=== PATIENT | male | born 1985 ===

== ENCOUNTER 2025-06-12 20:09 | Inpatient (IN) ==
[2025-06-12 21:05] LABS: Hematocrit (blood only) 44.2 % (42.0-52.0); Hemoglobin 15.4 g/dl (14.0-18.0); Mean Corpuscular Hemoglobin 31.2 pg (25.0-34.0); Mean Corpuscular Volume 89.5 fL (80.0-100.0); Platelet Count 336 K/uL (130-400); RDW Standard Deviation 43.1 fL (36.4-46.3); Red Blood Count 4.94 M/uL (4.70-6.10); White Blood Count 11.26 K/ul (4.8-10.8)
[2025-06-12 21:17] LABS: Appearance Urine Clear (Clear); Bacteria Urine Automated None Seen (None Seen); Cast Urine Automated 0-2 /lpf (0-2); Epithelial Cell Urine Auto 0-2 /hpf (0-2); Glucose Urine UA Negative (Negative); WBC Urine Automated 0-5 /hpf (0-5)
[2025-06-12 21:27] LABS: Alanine Aminotransferase 31.0 U/L (7-52); Albumin Globulin Ratio 1.2 (0.9-2); Alkaline Phosphatase 65.0 U/L (34-104); Anion Gap 7.0 (3-11); Bilirubin,Total 0.7 mg/dl (0.2-1.0); Blood Urea Nitrogen 15.0 mg/dl (6-23); Calcium 9.7 mg/dl (8.6-10.3); Carbon Dioxide 29.0 mmol/L (21-32); Chloride 101.0 mmol/L (98-107); Creatine Kinase 218.0 U/L (30-223); Creatinine Clr Calc Pharmacy 130.3 ml/min; Globulin 3.8 gm/dl (2.5-4.0); Glucose 123.0 mg/dl (70-99(Fasting)); Lithium 0.3 mmol/L (0.6-1.2); Potassium 3.7 mmol/L (3.5-5.1); Sodium 137.0 mmol/L (136-145); Total Protein 8.4 gm/dl (6.0-8.3)
[2025-06-12 21:35] LABS: Thyroid Stimulating Hormone 0.918 uIu/ml (0.300-4.500)
[2025-06-12 21:38] LABS: Acetaminophen < 3 ug/ml (10-30); Salicylate < 3.0 mg/dl (3.0-30)
[2025-06-12 21:45] LABS: Amphetamines+Metham, Urine Neg (Neg); MDMA (Ecstacy), Urine Neg (Neg); Marijuana, Urine Neg (Neg)
[2025-06-12 22:51] LABS: ALC (manual) 6.31 K/uL (1.2-3.4); ANC (manual) 3.83 K/uL (1.4-6.5); RBC Morphology Unremarkable; Reactive Lymphocytes # (manual) 3.27 K/uL; Reactive Lymphocytes % (manual) 29 %
--- NOTE | 2025-06-12 23:24 | Emergency Department Note ---
History of Present Illness General Chief complaint: Mental Health Evaluation Stated complaint: STRESS, MANIC EPISODE, LACK OF SLEEP Time Seen by Provider: 06/12/25 20:17 Source: patient and family (Mother) History of Present Illness Provider complaint: Mental health evaluation 39-year-old male presents to the emergency department stating "I am the Matilda was sent to be the messenger of Darwin". Mother reports that the patient has a history of bipolar disorder and has not been sleeping for the last 4 days. No drugs or alcohol. Patient reports no suicidal or homicidal ideation. Past Med/Surg History Problem List (Updated 06/13/25 @ 00:24 by Jonathan Infante MD) Bipolar disorder (Acute) Medical History Bipolar disorder Social History Smoking Status: Never smoker Preferred Language: British Feels Safe at Home: Yes Gender Identity: Male Physical Exam Vital Signs Vital Signs - 24 hr 06/12/25 20:09 06/12/25 20:11 06/12/25 22:27 Temperature 37 C Temperature Source Temporal Artery Scan Pulse Rate 68 Pulse Rate [Finger] 76 Pulse Rhythm Regular Pulse Strength Normal Respiratory Rate 17 16 Respiratory Effort / Characteristics Non-Labored Non-Labored Spontaneous Respiratory Depth Normal Normal Respiratory Pattern Regular Blood Pressure 195/110 H Blood Pressure [Right Arm] 136/89 Blood Pressure Mean 138 Blood Pressure Mean [Right Arm] 104 Blood Pressure Position Sitting Pulse Oximetry 97 94 Oxygen Delivery Method Room Air Room Air Sepsis Recent Fever Within 48 Hours No Sepsis New/Unexplained Change in Mental Status N/A Sepsis Action Taken by Nursing No Action Required Physical Exam GENERAL: oriented to person, place, and time. appears well-developed and well- nourished. HENT: Exam performed. - Head: Normocephalic and atraumatic. EYES: Conjunctivae and EOM are normal. Right eye exhibits no discharge. Left eye exhibits no discharge. No scleral icterus. NECK: Normal range of motion. Neck supple. No JVD present. CV: Normal rate, regular rhythm, normal heart sounds and intact distal pulses. There is no peripheral edema. Palpable radial pulses bue. PULM/CHEST: Effort normal and breath sounds normal. No respiratory distress. No stridor. no wheezes. no rales. ABD: The abdomen is soft. There is no tenderness. NEURO: Motor and sensation grossly intact. SKIN: Skin is warm and dry. He is not diaphoretic. PSYCH: Bizarre affect. No suicidal ideation. Course Course 2017: The patient was evaluated in room A6. A complete history and physical exam was performed 2324: Patient medically cleared. Awaiting psychiatric evaluation and placement patient placed in observation at this time 0022: Case signed out to Dr. Masterson pending placement. Administered Medications Discontinued Medications Lorazepam (Lorazepam 2 Mg/1 Ml Vial) 1 mg IV NOW STA Stop: 06/12/25 22:17 Last Admin: 06/12/25 22:23 Dose: 1 mg Documented By: NRSidney Medical Decision Making Laboratory Data Attestation: I reviewed the patient's lab results. 06/12/25 20:44 06/12/25 20:44 Lab Results 06/12/25 06/12/25 06/12/25 Range/Units 20:44 20:55 Unknown WBC 11.26 H (4.8-10.8) K/ul RBC 4.94 (4.70-6.10) M/uL Hgb 15.4 (14.0-18.0) g/dl Hct 44.2 (42.0-52.0) % MCV 89.5 (80.0-100.0) fL MCH 31.2 (25.0-34.0) pg MCHC 34.8 (32.0-36.0) g/dL RDW Std Deviation 43.1 (36.4-46.3) fL RDW Coeff of Carlene 13.2 (11.5-14.5) % Plt Count 336 (130-400) K/uL MPV 9.4 (9.4-12.4) fL Neutrophils % (Manual) 34 % Lymphocytes % (Manual) 27 % Reactive Lymphs % (Man) 29 % Monocytes % (Manual) 8 % Eosinophils % (Manual) 1 % Basophils % (Manual) 1 % Neutrophils # (Manual) 3.83 (1.40-6.50) K/uL Total Absolute Neuts 3.83 (1.4-6.5) K/uL Lymphocytes # (Manual) 3.04 (1.2-3.4) K/uL Reactive Lymphs # 3.27 K/uL Total Abs Lymphocytes 6.31 H (1.2-3.4) K/uL Monocytes # (Manual) 0.90 H (0.11-0.59) K/uL Eosinophils # (Manual) 0.11 (0-0.50) K/uL Basophils # (Manual) 0.11 (0-0.2) K/uL RBC Morphology Unremarkable Sodium 137 (136-145) mmol/L Potassium 3.7 (3.5-5.1) mmol/L Chloride 101 (98-107) mmol/L Carbon Dioxide 29 (21-32) mmol/L Anion Gap 7 (3-11) BUN 15 (6-23) mg/dl Creatinine 0.96 (0.6-1.4) mg/dl Est Cr Clr Drug Dosing 130.3 ml/min eGFR 103.11 BUN/Creatinine Ratio 15.6 (10-20) Glucose 123 H (70-99(Fasting)) mg/dl Calcium 9.7 (8.6-10.3) mg/dl Total Bilirubin 0.7 (0.2-1.0) mg/dl AST 31 (13-39) U/L ALT 31 (7-52) U/L Alkaline Phosphatase 65 (34-104) U/L Total Creatine Kinase 218 (30-223) U/L Total Protein 8.4 H (6.0-8.3) gm/dl Albumin 4.6 (3.4-5.0) gm/dl Globulin 3.8 (2.5-4.0) gm/dl Albumin/Globulin Ratio 1.2 (0.9-2) TSH 0.918 (0.300-4.500) uIu/ml Urine Color Dark Yellow Urine Appearance Clear (Clear) Urine pH 6.0 (4.5-7.5) Ur Specific [place] 1.014 (1.000-1.030) Urine Protein Negative (Negative) Urine Glucose (UA) Negative (Negative) Urine Ketones Negative (Negative) Urine Blood 1+ H (Negative) Urine Nitrite Negative (Negative) Urine Bilirubin Negative (Negative) Urine Urobilinogen Negative (Negative) Ur Leukocyte Esterase Negative (Negative) Urine WBC (Auto) 0-5 (0-5) /hpf Urine RBC (Auto) 6-10 H (0-2) /hpf U Hyaline Cast (Auto) 0-2 (0-2) /lpf U Epithel Cells (Auto) 0-2 (0-2) /hpf Urine Bacteria (Auto) None Seen (None Seen) Urine Comment Salicylates < 3.0 L (3.0-30) mg/dl Urine Opiates Screen Neg (Neg) Ur Methadone, Qual Neg (Neg) Urine Fentanyl Screen Neg (Neg) Acetaminophen < 3 L (10-30) ug/ml Urine Barbiturates Neg (Neg) Ur Phencyclidine (PCP) Neg (Neg) U Amphetamin/Meth Scrn Neg (Neg) MDMA (Ecstasy) Screen Neg (Neg) U Benzodiazepines Scrn Neg (Neg) [place] 0.3 L (0.6-1.2) mmol/L Ur Cocaine Metabolite Neg (Neg) U Marijuana (THC) Screen Neg (Neg) Ethyl Alcohol mg/dL < 10.0 (<10.0) mg/dl SARS-CoV-2, RNA, NAAT NEGATIVE (NEGATIVE) ECG Data Attestation: I personally reviewed and interpreted this ECG as follows: Rate (beats per minute): 67 Rhythm: + normal sinus ECG ST segments: + Normal ST segments Additional Comments: MS 1.2 QRS 104 QTc 435 no delta waves MDM Narrative 2017: The patient was evaluated in room A6. A complete history and physical exam was performed 2324: Patient medically cleared. Awaiting psychiatric evaluation and placement patient placed in observation at this time 0022: Case signed out to Dr. Masterson pending placement. Observation note Indication: Psych eval/placement Patient, with bipolar disorder was first seen at 2017 hrs and the observation time began at 2324 hrs and was necessary in order to have psych evaluation completed and the patient be admitted for inpatient psychiatric treatment Impression & Plan Bipolar disorder Discharge Plan Visit Data Chief Complaint: Mental Health Evaluation Stated Complaint: STRESS, MANIC EPISODE, LACK OF SLEEP ED Provider: Hardy Masterson Discharge Problem: Bipolar disorder Patient Disposition: Still a Patient Condition: Fair Forms Stand Alone Forms: My [facility], Suicide Prevention Resources Referrals Referrals: PCP,NO [Primary Care Provider] -
--- NOTE | 2025-06-13 00:20 | Emergency Department Note ---
ED Visit Note I received signout from Dr. Infante. Patient has not slept in 4 days history of bipolar disorder is having thoughts of grandeur stating that he has some profit sent by the [facility]. History of taking lithium in the past but has not been compliant. No home medications. Patient is pending placement. Per ED psych case management review of the liaison Dr. Quiroz had recommended Zyprexa and Ativan. Zyprexa was ordered Ativan was ordered as needed. Patient accepted to [address] .
[2025-06-13] MEDS ORDERED: LORazepam 1 MG TAB PO PRN (00:27)
[2025-06-13] MEDS: OLANZapine 10 MG TAB PO STA (03:10)
--- NOTE | 2025-06-13 12:13 | Electrocardiogram Report ---
Test Reason : Blood Pressure : */* mmHG Vent. Rate : 67 BPM Atrial Rate : 67 BPM P-R Int : 112 ms QRS Dur : 104 ms QT Int : 412 ms P-R-T Axes : 7 18 38 degrees QTcB Int : 435 ms Normal sinus rhythm Normal ECG No previous ECGs available Confirmed by Casey Pink ([id number]) on 06/13/2025 12:12:45 PM Referred By: REFERRED SELF Confirmed By: Casey Pink
[2025-06-13] MEDS ORDERED: MAGNESIUM HYDROXIDE SUSP 30 ML UDC PO PRN (12:47)
[2025-06-13] MEDS ORDERED: ACETAMINOPHEN 325 MG TAB PO PRN (12:47)
[2025-06-13] MEDS ORDERED: SODIUM CHLORIDE 0.65% NA SOLN 45 ML (OCEAN) PRN (12:47)
[2025-06-13] MEDS ORDERED: ALUMINUM/MAGNESIUM SUSP 30 ML UDC PO PRN (12:47)
[2025-06-13] MEDS: LORazepam 1 MG TAB PO STA ×2 (13:24→14:58)
--- NOTE | 2025-06-13 14:58 | History & Physical ---
Date of Service June 13, 2025 Impression / Recommendations Impression LEONARDO HARDEN is a 39-year-old M has a history of bipolar disorder, and was admitted on 06/13/25 12:08 on a 302 involuntary commitment for becky, psychosis. Concern for Bipolar 1 Becky with psychosis. Presents pressured speech, decreased need for sleep, high energy, elevated mood and erotomanic and temple delusions about being in a love with a female and trying to help her and being a messenger of god. Intrusive with peers going into their room and following females on the unit inappropriately. Presents poor insight and judgement. Recent triggers include a woman messaging him on facebook for love and recent decrease of lithium from 1200mg to 900mg daily total 2-3 weeks by outpatient psychiarist. Distant past becky suspected with more recent depressive episodes. Appears patient has been partially adherent to meds given subtherapeutic lithium level (0.3). Labs reviewed: reactive leukocytosis; CMP, UA, UDS, TSH unremarkable. Overall, I spent a total of 80 minutes with this case including review of chart records, nursing report, review of lab work, direct evaluation of the patient at bedside, counseling the patient, multidisciplinary team meeting, orders, and documentation in the electronic health record. (1) Becky: (2) Insomnia: (3) Delusions: (4) Unspecified psychosis not due to a substance or known physiological condition: (5) Bipolar 1 disorder: (6) HTN (hypertension): Plan 06/13/25: The patient was admitted to the [facility] ([facility] mental health unit) on q15 min checks (behavioral with suicide precautions) for safety. The patient will participate in group, recreational, and milieu therapies and will be offered additional individual and family sessions as clinically appropriate. -Olanzapine 10mg HS -Lorazepam 2mg HS Inventory Assets Strengths: financial stability, family support Needs: insight into condition, medication management Suicide Risk Level Suicide Risk Level: Moderate (q15 min suicide checks) Risk Factors Assessment Male: Yes : No Health Problems: No Mental Health Diagnoses: Yes Substance Use Disorders: No Previous Attempt: No Family History of Suicide: No Previous Psychiatric Hospitalization: Yes Hopelessness: No Protective Factors Assessment Orthodoxy Beliefs: Yes : No Responsible for Young Children: No Employed: No Stable Relationships: Yes Supportive Family: Yes Good Rapport with Provider: Yes Absence of Any Risk Factors Above: No Psychiatric History Identifying Data LEONARDO HARDEN is a 39-year-old M has a history of bipolar disorder, and was admitted on 06/13/25 12:08 on a 302 involuntary commitment for becky, psychosis. Chief Complaint "In love and had to help someone" History of Present Illness Patient reports being in love and having to help somebody in her first to a woman he has been texting and connecting with. Feels confused and is unsure why he is in the hospital. Says he has been involved with the girl and has lost sleep over her. Reports feeling more emotional and loving everyone. Met this girl on a dating website and driving from [place] to see her. Patient is originally from [facility]. Unsure where she lives. Getting signs to help her because her daughter needs help. Reports past autism and ADHD diagnosis. Reports taking medications: Holly 300 mg 3 times daily, propranolol 80 mg daily, Latuda 20 mg with dinner, Lexapro 10 mg daily. Has a psychiatrist. Past inpatient psychiatric hospitalization 2 years ago for depression and anxiety. Reports past becky many years ago when his daughter was a and he had started steroids and had stress from school. Reports in the past few weeks lithium was decreased from 1200 to 900 mg daily total. Patient does not want antipsychotic however is willing to accept a benzodiazepine. Denies current SI and HI. Patient reassured. 06/13/25 13:40 - Psychiatric Liason Note by Angela Chawla RN Pt admitted to [address] [place] [address] at 1205 on 302 involuntary commitment. Pt presented after he drove here from [place] trying to find a female online because "the [facility] told me to." He has been calm and cooperative since he has arrived on the unit. He remains delusional as he still states he is hearing "inner dialogue telling him to help someone." He also questioned staff who a female peer is on the unit believing this may be the female he is supposed to help. He is refusing to sign NAKITA's for any of his outpatient providers. He initially was resistant to sign an NAKITA for his parents but he did eventually agree. He stated he sees Shae Marina through [facility] in [facility] for psych med management. He also sees Saumya through same facility for therapy. He also claims she has another therapist there as well through the [facility]" but was not able to elaborate what this is. He denies substance us. His last psych hospitalization was approximately 2 years ago in [place] but he states he has been hospitalized at least 15-20 times. He lacks insight into hospitalization as he feels he does not need to be here and he is only here to help someone else. He made homicidal statements in ED but none voiced on the unit. He showered upon arrival. Initiated on suicide/homicide precautions as well as elopement and MNPR. 06/13/25 03:10 - Nurse Note by Yury Hernandez RN Patient started to become increasingly irritable and restless throughout the night, continuously coming out of room and becoming increasingly more difficult to redirect. Pt came out of U room multiple times and made numerous statements about a female staff member, including "that's her, I need to talk to her" and "It's a sign, I know what i need to do". Pt was instructed to return into his room, but instead attempted to follow the female staff out of the unit. Security then presented to [facility] and redirected patient back to room. Pt again came out of room and stated "I was told to murder all of you without touching you, and I just have to do what I'm told" with this RN, Willy GODINEZ and security staff members Guanakito Beard and Leo present. Patient was again redirected into room and an order was placed for 10mg PO Zyprexa and 1mg PO Ativan. This RN attempted to administer medications to pt, but refused them. An order was then placed for 2mg of IV Ativan by Dr. Masterson. Security present in room while this RN then attempted to administer the IV medication, and patient escalated and attempted to fight with staff. Pt physically held by security and taken to the ground, where the IV Ativan was administered. Dr. Masterson and charge nurse made aware of incident. After administration, patient de-escalated and was able to be redirected back to bed. Pt denied any pain or injury from the incident, and full body assessment was done by this RN and no external injuries noted. Pt did not strike head while being taken to the ground. 06/12/25 21:55 - Case Management ED Psych by Tori Petty Met with Leonardo javier to complete mental health evaluation. Patient denies any mental health conditions. When asked about psychiatric medications he is prescribed, he stated "lithium is for a little bit of anxiety and Lexapro is for the same." Patient then stated he is diagnosed with Autism and ADHD. Leonardo stated he travelled to [place] to see a person he was talking to online, Fatmata Marvin. He stated he knows Fatmata's address and she is "elusive in a way about me coming." He stated he "is following the directions of the [employer] [facility] to come find her." Patient repeatedly out of the room stating he needs to find Fatmata. He then stated he is hearing voices to help the patient (minor female) in the next room. He stated he has had this happen to him before "but not like this, I know this is real and I have to follow his orders." He denies SI/HI/SIB. He stated "I just feel love." Patient denies visual hallucination but stated "I am noticing more and more in tune to see the messages." He reports hearing the voice of the [employer] telling him to do things. He denies that voices are telling him to harm himself or others. Leonardo stated he is prescribed medication by a psychiatrist but does not remember name/agency in [place]. He stated he also sees a therapist but can't remember name. He stated he has been inpatient in [place], [place]. He talked about feeling "positive/negative energy." He denies legal issues. He did not want to talk about trauma or abuse history. He stated parents followed him from [place] "to stop me from doing it." Leonardo stated he will sign himself into mental health treatment "because the [employer] led me here for a reason so it must be my purpose." Leonardo is not able to meaningfully consent to inpatient treatment at this time due to delusion based thinking that is not reality based in his thinking. 302 petition completed and delegate contacted. 06/12/25 20:54 - Nurse Note by Jil Renteria RN Patient repeatedly asking staff if they know a "Fatmata Marvin." States that he came to [place] looking for her. Out of room frequently with various requests--RN provided blanket, water, crackers and peanut butter. Patient restless but overall cooperative, generally redirectable. 06/12/25 20:24 - Case Management ED Psych by Tori Petty Accompanied Dr. Infante to meet with Leonardo and his mother. Leonardo stated "Im just the messenger for the tony." Mother stated "he is Bipolar and hasn't slept in four days." Leonardo stated "no I'm not. Mom, you need to stop." Patient stated he does see a psychiatrist and is prescribed medications. Leonardo presents extremely guarded. Spoke with mother outside room. Mother stated "he's very mentally ill." Mother stated he is hearing voices. Mother denies any SI. Mother denies any aggression or HI. Process of medical clearance and mental health evaluation explained to mother and patient. Past Psychiatric History Current Psychiatric Diagnosis: Autism/ADHD History of Previous Suicide Attempt: No Allergies Allergy/AdvReac Type Severity Reaction Status Date / Time No Known Allergies Allergy Unverified 06/13/25 14:34 Home Medications Medication Instructions Recorded Confirmed Type Latuda 20 mg PO QPM 06/13/25 06/13/25 History escitalopram oxalate 10 mg tablet 10 mg PO DAILY 06/13/25 06/13/25 History (Lexapro) hydroxyzine pamoate 25 mg capsule 25 mg PO QPM 06/13/25 06/13/25 History (Vistaril) lithium carbonate 300 mg tablet 300 mg PO TID 06/13/25 06/13/25 History propranolol 80 mg capsule,24 80 mg PO DAILY 06/13/25 06/13/25 History hr,extended release Family History Family History of: Doesn't Know Alcohol History Hx of Alcohol Use Over the Past 12 Months: Yes (occassional) AUDIT Total Score: 3 Smoking Use Have You Smoked or Used Tobacco Products in the Last 30 Days: No Smoking Status: Never smoker Substance History Hx of Prescription Med Misuse Over the Past 12 Months: No Hx of Over the Counter Med Misuse Over the Past 12 Months: No Hx of Inhalent Misuse Over the Past 12 Months: No Hx of Organic Substance Use Over the Past 12 Months: No Hx of Illegal Substances/Street Drug Use Over Past 12 Months: No Problems as a Result of Past Substance Use: None Identified Personal History Living Arrangements: Home Living Arrangements Comments: lives in a home owned by parents Highest Grade Completed: Graduate School Beliefs That Will Affect Care: None Patient History Medical History Bipolar disorder Social History Smoking Status: Never smoker Preferred Language: Syrian Communication Ability: Effective Boat Outfitter Required: No Beliefs That Will Affect Care: None Feels Safe at Home: Yes Gender Identity: Male Assistive Devices: Glasses Physical Exam Mental Examination: Appearance: Well Groomed Eye Contact: Direct Eye Contact Motor Behavior: Unremarkable Speech: Normal Mood: Anxious and E levated Affect: Congruent Thought Process: Disorganized and Goal Oriented Thought Content: Disorganized and Obsessional Thoughts Hallucinations: None (unclear) Insight: Poor Judgement: Poor Vital Signs (Past 24 Hours): Last Vital Signs Temp 36.6 C 06/13/25 13:02 Pulse 78 06/13/25 13:02 Resp 16 06/13/25 13:02 BP 118/84 06/13/25 06:35 Pulse Ox 100 06/13/25 13:02 O2 Del Method Room Air 06/13/25 13:02 Exam Statement: A physical exam was performed in the ED for the purposes of medical clearance. I accept that physical as correct and adequate for the purposes of the inpatient physical exam. Results & Data ([facility]) Laboratory Results Laboratory Results - last 24 hr 06/12/25 06/12/25 06/12/25 20:44 20:55 Unknown WBC 11.26 H RBC 4.94 Hgb 15.4 Hct 44.2 MCV 89.5 MCH 31.2 MCHC 34.8 RDW Std Deviation 43.1 RDW Coeff of Carlene 13.2 Plt Count 336 MPV 9.4 Neutrophils % (Manual) 34 Lymphocytes % (Manual) 27 Reactive Lymphs % (Man) 29 Monocytes % (Manual) 8 Eosinophils % (Manual) 1 Basophils % (Manual) 1 Neutrophils # (Manual) 3.83 Total Absolute Neuts 3.83 Lymphocytes # (Manual) 3.04 Reactive Lymphs # 3.27 Total Abs Lymphocytes 6.31 H Monocytes # (Manual) 0.90 H Eosinophils # (Manual) 0.11 Basophils # (Manual) 0.11 RBC Morphology Unremarkable Sodium 137 Potassium 3.7 Chloride 101 Carbon Dioxide 29 Anion Gap 7 BUN 15 Creatinine 0.96 Est Cr Clr Drug Dosing 130.3 eGFR 103.11 BUN/Creatinine Ratio 15.6 Glucose 123 H Calcium 9.7 Total Bilirubin 0.7 AST 31 ALT 31 Alkaline Phosphatase 65 Total Creatine Kinase 218 Total Protein 8.4 H Albumin 4.6 Globulin 3.8 Albumin/Globulin Ratio 1.2 TSH 0.918 Urine Color Dark Yellow Urine Appearance Clear Urine pH 6.0 Ur Specific [place] 1.014 Urine Protein Negative Urine Glucose (UA) Negative Urine Ketones Negative Urine Blood 1+ H Urine Nitrite Negative Urine Bilirubin Negative Urine Urobilinogen Negative Ur Leukocyte Esterase Negative Urine WBC (Auto) 0-5 Urine RBC (Auto) 6-10 H U Hyaline Cast (Auto) 0-2 U Epithel Cells (Auto) 0-2 Urine Bacteria (Auto) None Seen Urine Comment Salicylates < 3.0 L Urine Opiates Screen Neg Ur Methadone, Qual Neg Urine Fentanyl Screen Neg Acetaminophen < 3 L Urine Barbiturates Neg Ur Phencyclidine (PCP) Neg U Amphetamin/Meth Scrn Neg MDMA (Ecstasy) Screen Neg U Benzodiazepines Scrn Neg [place] 0.3 L Ur Cocaine Metabolite Neg U Marijuana (THC) Screen Neg Ethyl Alcohol mg/dL < 10.0 SARS-CoV-2, RNA, NAAT NEGATIVE Current Inpatient Medications Current Inpatient Medications: Current Inpatient Medications Acetaminophen (Acetaminophen 325 Mg Tab) 650 mg PO Q4H PRN PRN Reason: Headache or Minor Fever Stop: 07/13/25 12:46 Al Hydrox/Mg Hydrox/Simethicone (Aluminum/Magnesium Susp 30 Ml Udc) 30 ml PO Q4H PRN PRN Reason: GI Upset Stop: 07/13/25 12:46 Bismuth Subsalicylate (Bismuth Subsalicylate 262 Mg Chew) 2 tab PO Q30M PRN PRN Reason: Loose Stool/Diarrhea Stop: 07/13/25 12:46 Haloperidol Lactate (Haloperidol Lactate 5 Mg/Ml 1 Ml Vial) 5 mg IM Q8 PRN PRN Reason: Agitation Stop: 07/13/25 12:53 Hydroxyzine HCl (Hydroxyzine Hcl 25 Mg Tab) 50 mg PO HSZ PRN PRN Reason: Insomnia Stop: 07/13/25 12:46 Hydroxyzine HCl (Hydroxyzine Hcl 25 Mg Tab) 25 mg PO Q4H PRN PRN Reason: Anxiety Stop: 07/13/25 12:46 Lorazepam (Lorazepam 1 Mg Tab) 2 mg PO HS TOM Stop: 07/13/25 21:59 Lorazepam (Lorazepam 2 Mg/1 Ml Vial) 2 mg IM Q8 PRN PRN Reason: Agitation Stop: 07/13/25 12:51 Lorazepam (Lorazepam 1 Mg Tab) 2 mg PO Q8 PRN PRN Reason: Agitation Stop: 07/13/25 14:36 Magnesium Hydroxide (Magnesium Hydroxide Susp 30 Ml Udc) 30 ml PO DAILY PRN PRN Reason: Constipation Stop: 07/13/25 12:46 Olanzapine (Olanzapine 10 Mg Tab) 10 mg PO HS TOM Stop: 07/13/25 21:59 Olanzapine (Olanzapine 5 Mg Tablet) 5 mg PO Q6 PRN PRN Reason: psychosis/agitation Stop: 07/13/25 14:25 Sodium Chloride (Sodium Chloride 0.65% Na Soln 45 Ml ([place])) 1 - 2 sprays NA PRN PRN PRN Reason: Nasal Dryness/Congestion Stop: 07/13/25 12:46
[2025-06-13] MEDS: LORazepam 1 MG TAB PO SCH (22:23)
[2025-06-13] MEDS: OLANZapine 10 MG TAB PO SCH (22:23)
[2025-06-14] MEDS: LORazepam 1 MG TAB PO PRN (08:24)
[2025-06-14] MEDS: PROPRANOLOL HCL LA 80 MG CAPCR PO SCH (10:48)
--- NOTE | 2025-06-14 11:59 | Psychiatric Progress Note ---
Date of Service June 14, 2025 Impression / Recommendations Impression LYN HARDEN is a 39-year-old M has a history of bipolar disorder, and was admitted on 06/13/25 12:08 on a 302 involuntary commitment for becky, psychosis. Concern for Bipolar 1 Becky with psychosis. Presents pressured speech, decreased need for sleep, high energy, elevated mood and erotomanic and zoroastrian delusions about being in a love with a female and trying to help her and being a messenger of god. Intrusive with peers going into their room and following females on the unit inappropriately. Presents poor insight and judgement. Recent triggers include a woman messaging him on facebook for love and recent decrease of lithium from 1200mg to 900mg daily total 2-3 weeks by outpatient psychiatrist. Distant past becky suspected with more recent depressive episodes. Appears patient has been partially adherent to meds given subtherapeutic lithium level (0.3). A: Continues to present delusional thoughts, pressured speech, elevated mood state, decreased need for sleep and poor insight/judgement into condition. Has been intrusiveness going into his peers' rooms and following female staff members on the unit and believe it is related to delusional thought content. Received minimal and disrupted sleep despite sleep aid. Concern for safety if discharged in current state. Refused nightly olanzapine and took other medications with encouragement. Collateral gathered from family and confirms prior concerns; family is supportive and concerned about his mental state and safety. Recent stressors of divorce and medication change may have been becky triggers. Plan to optimize benzodiazepines, restart lithium. Current plan to pursue further involuntary commitment. MNPR due to becky, psychosis, intrusiveness with peers and staff Overall, I spent a total of 60 minutes with this case including review of chart records, nursing report, review of lab work, direct evaluation of the patient at bedside, counseling the patient, multidisciplinary team meeting, orders, gathering collateral and documentation in the electronic health record. (1) Becky: (2) Insomnia: (3) Delusions: (4) Unspecified psychosis not due to a substance or known physiological condition: (5) Bipolar 1 disorder: (6) HTN (hypertension): Plan 06/14/2025: Start [place] 600mg BID D/c Lorazepam Start Clonazepam 1mg QAM, 2mg HS Start Propranolol ER 80mg daily (home med) 06/13/25: The patient was admitted to the [facility] on q15 min checks (behavioral with suicide precautions) for safety. The patient will participate in group, recreational, and milieu therapies and will be offered additional individual and family sessions as clinically appropriate. -Olanzapine 10mg HS -Lorazepam 2mg HS Inventory Assets Strengths: financial stability, family support Needs: insight into condition, medication management Suicide Risk Level Suicide Risk Level: Moderate (q15 min suicide checks) Risk Factors Assessment Male: Yes : No Do You Have Access To A Gun?: No Health Problems: No Mental Health Diagnoses: Yes Substance Use Disorders: No Previous Attempt: No Family History of Suicide: No Previous Psychiatric Hospitalization: Yes Hopelessness: No Protective Factors Assessment Islam Beliefs: Yes : No Responsible for Young Children: No Employed: No Stable Relationships: Yes Supportive Family: Yes Good Rapport with Provider: Yes Absence of Any Risk Factors Above: No Interval History Identifying Information LYN HARDEN is a 39-year-old M has a history of bipolar disorder, and was admitted on 06/13/25 12:08 on a 302 involuntary commitment for becky, psychosis. Chief Complaint Becky, psychosis Review of Systems Sleep Information Total Hours of Sleep: 2.25 Sleep Comments: Ativan 2mg. poor sleep Meal Information Percent Meal Consumed - Breakfast: 100 Percent Meal Consumed - Lunch: 100 Percent Meal Consumed - Dinner: 100 Subjective Subjective Patient was seen & assessed and interval progress reviewed with treatment team nursing and social work The patient reports that anxiety is good and helps to give love. During the interview, he closes his eyes and becomes tangential at times. Pressured and excessive speech and required some redirection. Rates his energy as "pretty good". Reports normally getting 4 to 5 hours of sleep and he was told he only received 2.5 hours of disrupted sleep with medication assistance. Says that he is "seeing signs". Says that his ex-'s father popped up on Facebook and felt he needed to talk to his ex-. Ex- has been reluctant to talk to him. Then a random girl on Facebook started "love bombing him". She is in [place] and felt that he had to go to see her. [place] that she was in trouble and that the "[employer]" told him to come. Reports wanting to be in high anxiety state as he brings more love. Does not believe in the pharmaceutical industry feel they are exploiting the nation. When asked why he is pursuing the girl that he met on Facebook he reports that it is a different girl and the girl he met on Facebook and that he is "feeling so much in love" And she was giving mixed signals. says he is a "messenger from God here to spread love for music". 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 We discussed past medications and side effects. He reports both Seroquel and Zyprexa was overly sedated if and gave a "poverty of thought", risperidone made him feel "numb", ziprasidone and Abilify caused "akathisia". Denies taking clozapine. Throughout the day required reassurance regarding his medications. Spoke to patient's mother (MARGARET HARDEN [phone]): Recent triggers include getting a divorce and not handling it well. Came all the way to [place] to see a girl he met online. More severe becky than the past. Past manic episode was when daughter was . Not sure how long it has been since he has slept. Drove all the way from [place], [place]. He cares very much about daughter and his dogs. Family confirms patient has been more paranoid. Does not want to listen to parents. Physical Exam Mental Examination Appearance: Well Groomed Eye Contact: Direct Eye Contact Motor Behavior: Unremarkable Speech: Excessive and Pressured Mood: Anxious and Elevated Affect: Congruent Thought Process: Disorganized and Goal Oriented Thought Content: Disorganized and Obsessional Thoughts Hallucinations: None (unclear) Insight: Poor Judgement: Poor Vital Signs (Past 24 Hours) Last Vital Signs Temp 36.4 C 06/14/25 04:01 Pulse 85 06/14/25 04:02 Resp 17 06/14/25 04:01 BP 161/111 H 06/14/25 04:02 Pulse Ox 98 06/14/25 04:01 O2 Del Method Room Air 06/14/25 04:01 Results & Data (U) Current Inpatient Medications Current Inpatient Medications: Current Inpatient Medications Acetaminophen (Acetaminophen 325 Mg Tab) 650 mg PO Q4H PRN PRN Reason: Headache or Minor Fever Stop: 07/13/25 12:46 Al Hydrox/Mg Hydrox/Simethicone (Aluminum/Magnesium Susp 30 Ml Udc) 30 ml PO Q4H PRN PRN Reason: GI Upset Stop: 07/13/25 12:46 Bismuth Subsalicylate (Bismuth Subsalicylate 262 Mg Chew) 2 tab PO Q30M PRN PRN Reason: Loose Stool/Diarrhea Stop: 07/13/25 12:46 Clonazepam (Clonazepam 1 Mg Tab) 1 mg PO DAILY TOM Stop: 07/14/25 10:59 Clonazepam (Clonazepam 1 Mg Tab) 2 mg PO HS [facility] Stop: 07/14/25 21:59 Haloperidol Lactate (Haloperidol Lactate 5 Mg/Ml 1 Ml Vial) 5 mg IM Q8 PRN PRN Reason: Agitation Stop: 07/13/25 12:53 Hydroxyzine HCl (Hydroxyzine Hcl 25 Mg Tab) 50 mg PO HSZ PRN PRN Reason: Insomnia Stop: 07/13/25 12:46 Hydroxyzine HCl (Hydroxyzine Hcl 25 Mg Tab) 25 mg PO Q4H PRN PRN Reason: Anxiety Stop: 07/13/25 12:46 Lorazepam (Lorazepam 1 Mg Tab) 2 mg PO HS [facility] Stop: 07/13/25 21:59 Last Admin: 06/13/25 23:11 Dose: 2 mg Lorazepam (Lorazepam 2 Mg/1 Ml Vial) 2 mg IM Q8 PRN PRN Reason: Agitation Stop: 07/13/25 12:51 Lorazepam (Lorazepam 1 Mg Tab) 2 mg PO Q8 PRN PRN Reason: Agitation Stop: 07/13/25 14:36 Last Admin: 06/14/25 08:24 Dose: 2 mg Magnesium Hydroxide (Magnesium Hydroxide Susp 30 Ml Udc) 30 ml PO DAILY PRN PRN Reason: Constipation Stop: 07/13/25 12:46 Olanzapine (Olanzapine 10 Mg Tab) 10 mg PO HS [facility] Stop: 07/13/25 21:59 Last Admin: 06/13/25 22:23 Dose: Not Given Olanzapine (Olanzapine 5 Mg Tablet) 5 mg PO Q6 PRN PRN Reason: psychosis/agitation Stop: 07/13/25 14:25 Propranolol HCl (Propranolol Hcl La 80 Mg Capcr) 80 mg PO QAM [facility] Stop: 07/14/25 09:29 Last Admin: 06/14/25 10:48 Dose: 80 mg Sodium Chloride (Sodium Chloride 0.65% Na Soln 45 Ml ([place])) 1 - 2 sprays NA PRN PRN PRN Reason: Nasal Dryness/Congestion Stop: 07/13/25 12:46 Mental Health & Subst Abuse Tx Therapist [facility] of Therapist: [facility] Post Discharge Appointments Primary Care Physician Name Of Family Doctor/PCP: Sonu Odonnell
[2025-06-14] MEDS: LITHIUM CARBONATE SLOW REL 300 MG TAB PO SCH (12:22)
[2025-06-14] MEDS: clonazePAM 1 MG TAB PO SCH ×2 (12:22→21:02)
--- NOTE | 2025-06-15 14:35 | Psychiatric Progress Note ---
Date of Service June 15, 2025 Impression / Recommendations Impression LYN HARDEN is a 39-year-old M has a history of bipolar disorder, and was admitted on 06/13/25 12:08 on a 302 involuntary commitment for becky, psychosis. Concern for Bipolar 1 Becky with psychosis. Presents pressured speech, decreased need for sleep, high energy, elevated mood and erotomanic and pentecostalism delusions about being in a love with a female and trying to help her and being a messenger of god. Intrusive with peers going into their room and following females on the unit inappropriately. Presents poor insight and judgement. Recent triggers include a woman messaging him on facebook for love and recent decrease of lithium from 1200mg to 900mg daily total 2-3 weeks by outpatient psychiatrist. Distant past becky suspected with more recent depressive episodes. Appears patient has been partially adherent to meds given subtherapeutic lithium level (0.3). A: Patient continues to present a decreased need for sleep, delusional thought content, increased paranoia, partial medication nonadherence, and a poor understanding of his situation and mental state. Has been intrusive with other patients presenting inappropriate behavior. Religiously preoccupied with grandiose ideology. Patient currently has no safe or rational discharge plan. Refusing medications for becky control. Pursuing 303 involuntary commitment given concern for patient to maintain safety for himself and others in the community in his current state. MNPR due to becky, psychosis, intrusiveness with peers and staff Overall, I spent a total of 60 minutes with this case including review of chart records, nursing report, review of lab work, direct evaluation of the patient at bedside, counseling the patient, multidisciplinary team meeting, orders, gathering collateral and documentation in the electronic health record. (1) Becky: (2) Insomnia: (3) Delusions: (4) Unspecified psychosis not due to a substance or known physiological condition: (5) Bipolar 1 disorder: (6) HTN (hypertension): Plan 06/15/2025: Discontinue olanzapine 10 mg at bedtime (pt refusing) Start quetiapine 200 mg at bedtime and 06/14/2025: Start [place] 600mg BID D/c Lorazepam Start Clonazepam 1mg QAM, 2mg HS Start Propranolol ER 80mg daily (home med) 06/13/25: [facility] on q15 min checks (behavioral with suicide precautions) for safety. The patient will participate in group, recreational, and milieu therapies and will be offered additional individual and family sessions as clinically appropriate. -Olanzapine 10mg HS -Lorazepam 2mg HS Inventory Assets Strengths: financial stability, family support Needs: insight into condition, medication management Suicide Risk Level Suicide Risk Level: Moderate (q15 min suicide checks) Risk Factors Assessment Male: Yes : No Do You Have Access To A Gun?: No Health Problems: No Mental Health Diagnoses: Yes Substance Use Disorders: No Previous Attempt: No Family History of Suicide: No Previous Psychiatric Hospitalization: Yes Hopelessness: No Protective Factors Assessment Sikh Beliefs: Yes : No Responsible for Young Children: No Employed: No Stable Relationships: Yes Supportive Family: Yes Good Rapport with Provider: Yes Absence of Any Risk Factors Above: No Interval History Identifying Information LYN HARDEN is a 39-year-old M has a history of bipolar disorder, and was admitted on 06/13/25 12:08 on a 302 involuntary commitment for becky, psychosis. Chief Complaint Becky, psychosis Review of Systems Sleep Information Total Hours of Sleep: 4 Sleep Comments: Ativan 2mg. poor sleep Meal Information Percent Meal Consumed - Breakfast: 75 Percent Meal Consumed - Lunch: 75 Percent Meal Consumed - Dinner: 100 Subjective Subjective Patient was seen & assessed and interval progress reviewed with treatment team nursing and social work Overnight, 4 hours of sleep and disrupted. Refused olanzapine. Took Klonopin and lithium with a lot of reassurance. Nursing spoke to ex- who reported past success on Seroquel. Patient told nursing staff that he was abusing the caffeinated beverage prior to admission. Overnight was religiously preoccupied. Intrusive with peers going into females rooms. Initially refused lithium this morning questioning the need for medications. On interview he reports being here for a "higher purpose" and that I need to "trust the Lord". Said that the meds yesterday helped him feel calmer and get some sleep. He is not sure of his plans if discharged currently and says that he will "will be around here". Says that he is waiting for terrain when asked why he says that he cannot tell me and appears paranoid. Says he does not want Seroquel or any other antipsychotics and that Seroquel is responsible for ruining his marriage. Says that no antipsychotic is good for autism spectrum disorder. When asked what brought him to [place] he reports that the girl he met on Facebook was texting him and told him to stop here. When I discussed his decreased need for sleep he reports not sleeping because he is "in love". He reports initially refusing lithium this morning with he could not decipher who was hurting him. I informed the patient to maintain boundaries with his peers and not to go into other people's rooms and he reports trying to go into a female patient's room because the female patient did not seem bothered by it and that God told him to help that girl. Physical Exam Mental Examination Appearance: Well Groomed Eye Contact: Direct Eye Contact Motor Behavior: Unremarkable Speech: Excessive and Pressured Mood: Anxious and Elevated Affect: Congruent Thought Process: Disorganized and Goal Oriented Thought Content: Disorganized and Obsessional Thoughts Hallucinations: None (unclear) Insight: Poor Judgement: Poor Vital Signs (Past 24 Hours) Last Vital Signs Temp 30.2 C L 06/15/25 04:00 Pulse 77 06/15/25 04:01 Resp 18 06/15/25 04:00 BP 145/95 H 06/15/25 04:01 Pulse Ox 100 06/15/25 04:00 O2 Del Method Room Air 06/15/25 04:00 Results & Data ([facility]) Current Inpatient Medications Current Inpatient Medications: Current Inpatient Medications Acetaminophen (Acetaminophen 325 Mg Tab) 650 mg PO Q4H PRN PRN Reason: Headache or Minor Fever Stop: 07/13/25 12:46 Al Hydrox/Mg Hydrox/Simethicone (Aluminum/Magnesium Susp 30 Ml Udc) 30 ml PO Q4H PRN PRN Reason: GI Upset Stop: 07/13/25 12:46 Bismuth Subsalicylate (Bismuth Subsalicylate 262 Mg Chew) 2 tab PO Q30M PRN PRN Reason: Loose Stool/Diarrhea Stop: 07/13/25 12:46 Clonazepam (Clonazepam 1 Mg Tab) 1 mg PO DAILY TOM Stop: 07/14/25 10:59 Last Admin: 06/15/25 09:08 Dose: 1 mg Clonazepam (Clonazepam 1 Mg Tab) 2 mg PO HS TOM Stop: 07/14/25 21:59 Last Admin: 06/14/25 21:02 Dose: 2 mg Haloperidol Lactate (Haloperidol Lactate 5 Mg/Ml 1 Ml Vial) 5 mg IM Q8 PRN PRN Reason: Agitation Stop: 07/13/25 12:53 Hydroxyzine HCl (Hydroxyzine Hcl 25 Mg Tab) 50 mg PO HSZ PRN PRN Reason: Insomnia Stop: 07/13/25 12:46 Hydroxyzine HCl (Hydroxyzine Hcl 25 Mg Tab) 25 mg PO Q4H PRN PRN Reason: Anxiety Stop: 07/13/25 12:46 [place] Carbonate ([place] Carbonate Slow Rel 300 Mg Tab) 600 mg PO BID TOM Stop: 07/14/25 11:59 Last Admin: 06/15/25 09:18 Dose: 600 mg Lorazepam (Lorazepam 2 Mg/1 Ml Vial) 2 mg IM Q8 PRN PRN Reason: Agitation Stop: 07/13/25 12:51 Lorazepam (Lorazepam 1 Mg Tab) 2 mg PO Q8 PRN PRN Reason: Agitation Stop: 07/13/25 14:36 Last Admin: 06/14/25 08:24 Dose: 2 mg Magnesium Hydroxide (Magnesium Hydroxide Susp 30 Ml Udc) 30 ml PO DAILY PRN PRN Reason: Constipation Stop: 07/13/25 12:46 Olanzapine (Olanzapine 10 Mg Tab) 10 mg PO HS TOM Stop: 07/13/25 21:59 Last Admin: 06/14/25 21:06 Dose: Not Given Olanzapine (Olanzapine 5 Mg Tablet) 5 mg PO Q6 PRN PRN Reason: psychosis/agitation Stop: 07/13/25 14:25 Propranolol HCl (Propranolol Hcl La 80 Mg Capcr) 80 mg PO QAM TOM Stop: 07/14/25 09:29 Last Admin: 06/15/25 09:07 Dose: 80 mg Sodium Chloride (Sodium Chloride 0.65% Na Soln 45 Ml ([place])) 1 - 2 sprays NA PRN PRN PRN Reason: Nasal Dryness/Congestion Stop: 07/13/25 12:46 Mental Health & Subst Abuse Tx Therapist [facility] Therapist: [facility] Post [facility]charge Appointments Primary Care Physician Name Of Family Doctor/PCP: Sonu Odonnell
[2025-06-15] MEDS: LITHIUM CARBONATE 300 MG TAB PO SCH (18:57)
[2025-06-16] MEDS: LITHIUM CARBONATE 300 MG TAB PO SCH (09:07)
--- NOTE | 2025-06-16 13:50 | Psychiatric Progress Note ---
Date of Service June 16, 2025 Impression / Recommendations Impression LNY HARDEN is a 39-year-old M has a history of bipolar disorder, and was admitted on 06/13/25 12:08 on a 302 involuntary commitment for becky, psychosis. Concern for Bipolar 1 Becky with psychosis. Presents pressured speech, decreased need for sleep, high energy, elevated mood and erotomanic and confucianism delusions about being in a love with a female and trying to help her and being a messenger of god. Intrusive with peers going into their room and following females on the unit inappropriately. Presents poor insight and judgement. Recent triggers include a woman messaging him on facebook for love and recent decrease of lithium from 1200mg to 900mg daily total 2-3 weeks by outpatient psychiatrist. Distant past becky suspected with more recent depressive episodes. Appears patient has been partially adherent to meds given subtherapeutic lithium level (0.3). A: Patient continues to present intrusive and inappropriate behaviors on the unit requiring frequent redirection. Refused nightly Seroquel. Presents a decreased need for sleep despite receiving 2 mg of clonazepam. Patient was agreeable to taking a antihistamine. 303 involuntary commitment approved. Given ongoing intrusiveness, poor boundary control, active psychosis, acting on delusions, no safe discharge plan recommend medications against objection to improve patient's condition as he is currently deemed to be an imminent risk of harm to himself and others if discharged in his current state. MNPR due to becky, psychosis, intrusiveness with peers and staff Overall, I spent a total of 60 minutes with this case including review of chart records, nursing report, review of lab work, direct evaluation of the patient at bedside, counseling the patient, multidisciplinary team meeting, orders, involuntary commitment and documentation in the electronic health record. (1) Becky: (2) Insomnia: (3) Delusions: (4) Unspecified psychosis not due to a substance or known physiological condition: (5) Bipolar 1 disorder: (6) HTN (hypertension): Plan 06/16/2025: Start hydroxyzine 100 mg at bedtime Increase [place] to 600mg QAM, 900mg HS [place] trough level on 06/20/25 evening 06/15/2025: Discontinue olanzapine 10 mg at bedtime (pt refusing) Start quetiapine 200 mg at bedtime 06/14/2025: Start [place] 600mg BID D/c Lorazepam Start Clonazepam 1mg QAM, 2mg HS Start Propranolol ER 80mg daily (home med) 06/13/25: The patient was admitted to the [facility] ([facility] mental health unit) on q15 min checks (behavioral with suicide precautions) for safety. The patient will participate in group, recreational, and milieu therapies and will be offered additional individual and family sessions as clinically appropriate. -Olanzapine 10mg HS -Lorazepam 2mg HS Inventory Assets Strengths: financial stability, family support Needs: insight into condition, medication management Suicide Risk Level Suicide Risk Level: Moderate (q15 min suicide checks) Risk Factors Assessment Male: Yes : No Do You Have Access To A Gun?: No Health Problems: No Mental Health Diagnoses: Yes Substance Use Disorders: No Previous Attempt: No Family History of Suicide: No Previous Psychiatric Hospitalization: Yes Hopelessness: No Protective Factors Assessment Latter-Day Beliefs: Yes : No Responsible for Young Children: No Employed: No Stable Relationships: Yes Supportive Family: Yes Good Rapport with Provider: Yes Absence of Any Risk Factors Above: No Interval History Identifying Information LYN HARDEN is a 39-year-old M has a history of bipolar disorder, and was admitted on 06/13/25 12:08 on a 302 involuntary commitment for becky, psychosis. Chief Complaint Becky, psychosis Review of Systems Sleep Information Total Hours of Sleep: 4.5 Sleep Comments: Ativan 2mg. poor sleep Meal Information Percent Meal Consumed - Breakfast: 100 Percent Meal Consumed - Lunch: 100 Percent Meal Consumed - Dinner: 100 Subjective Subjective Patient was seen & assessed and interval progress reviewed with treatment team nursing and social work 303 involuntary commitment approved today. Patient slept for 4 hours and was disrupted. Refused nightly Seroquel. Rates mood 20 out of 10 this morning. Has been calling the police and attempting to get into a female patient's room citing that he only answers to God. On interview he reports feeling "tired". Says that he has to help people and that he is doing the right thing. 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 Says he is listening to music and it is telling him to go into the patient's room. In that she is calling for him. Says that the female patient is testing him. Has been getting messages from God. Says he could have fell asleep at the wheel and was tired when he came in. When asked about the girl that he is getting messages from he says that he is not sure who she is. He said that someone from crisis texted him and believes it may be her. Presents excessive speech throughout the interview and became tangential when asked about a family psychiatric history. Is not interested in antipsychotic medication. Is willing to take Vistaril. Physical Exam Mental Examination Appearance: Well Groomed Eye Contact: Direct Eye Contact Motor Behavior: Unremarkable Speech: Excessive Mood: Anxious and Elevated Affect: Congruent Thought Process: Disorganized and Goal Oriented Thought Content: Disorganized and Obsessional Thoughts Hallucinations: None (unclear) Insight: Poor Judgement: Poor Vital Signs (Past 24 Hours) Last Vital Signs Temp 36.1 C L 06/16/25 03:49 Pulse 83 06/16/25 03:50 Resp 17 06/16/25 03:49 BP 129/92 06/16/25 03:50 Pulse Ox 99 06/16/25 03:49 O2 Del Method Room Air 06/16/25 03:49 Results & Data ([facility]) Current Inpatient Medications Current Inpatient Medications: Current Inpatient Medications Acetaminophen (Acetaminophen 325 Mg Tab) 650 mg PO Q4H PRN PRN Reason: Headache or Minor Fever Stop: 07/13/25 12:46 Al Hydrox/Mg Hydrox/Simethicone (Aluminum/Magnesium Susp 30 Ml Udc) 30 ml PO Q4H PRN PRN Reason: GI Upset Stop: 07/13/25 12:46 Bismuth Subsalicylate (Bismuth Subsalicylate 262 Mg Chew) 2 tab PO Q30M PRN PRN Reason: Loose Stool/Diarrhea Stop: 07/13/25 12:46 Clonazepam (Clonazepam 1 Mg Tab) 1 mg PO DAILY TOM Stop: 07/14/25 10:59 Last Admin: 06/16/25 09:01 Dose: 1 mg Clonazepam (Clonazepam 1 Mg Tab) 2 mg PO HS TOM Stop: 07/14/25 21:59 Last Admin: 06/15/25 18:33 Dose: 2 mg Haloperidol Lactate (Haloperidol Lactate 5 Mg/Ml 1 Ml Vial) 5 mg IM Q8 PRN PRN Reason: Agitation Stop: 07/13/25 12:53 Hydroxyzine HCl (Hydroxyzine Hcl 25 Mg Tab) 50 mg PO HSZ PRN PRN Reason: Insomnia Stop: 07/13/25 12:46 Last Admin: 06/15/25 23:46 Dose: 50 mg Hydroxyzine HCl (Hydroxyzine Hcl 25 Mg Tab) 25 mg PO Q4H PRN PRN Reason: Anxiety Stop: 07/13/25 12:46 Hydroxyzine HCl (Hydroxyzine Hcl 25 Mg Tab) 100 mg PO HS TOM Stop: 07/16/25 21:59 [place] Carbonate ([place] Carbonate 300 Mg Tab) 900 mg PO HS TOM Stop: 07/15/25 21:59 Last Admin: 06/15/25 18:57 Dose: Not Given [place] Carbonate ([place] Carbonate 300 Mg Tab) 600 mg PO DAILY TOM Stop: 07/16/25 08:59 Last Admin: 06/16/25 09:07 Dose: 600 mg Lorazepam (Lorazepam 2 Mg/1 Ml Vial) 2 mg IM Q8 PRN PRN Reason: Agitation Stop: 07/13/25 12:51 Lorazepam (Lorazepam 1 Mg Tab) 2 mg PO Q8 PRN PRN Reason: Agitation Stop: 07/13/25 14:36 Last Admin: 06/15/25 23:46 Dose: 2 mg Magnesium Hydroxide (Magnesium Hydroxide Susp 30 Ml Udc) 30 ml PO DAILY PRN PRN Reason: Constipation Stop: 07/13/25 12:46 Olanzapine (Olanzapine 5 Mg Tablet) 5 mg PO Q6 PRN PRN Reason: psychosis/agitation Stop: 07/13/25 14:25 Propranolol HCl (Propranolol Hcl La 80 Mg Capcr) 80 mg PO QAM TOM Stop: 07/14/25 09:29 Last Admin: 06/16/25 08:59 Dose: 80 mg Quetiapine Fumarate (Quetiapine Fumarate 200 Mg Tab) 200 mg PO HS TOM Stop: 07/15/25 21:59 Last Admin: 06/16/25 01:48 Dose: Not Given Sodium Chloride (Sodium Chloride 0.65% Na Soln 45 Ml ([place])) 1 - 2 sprays NA PRN PRN PRN Reason: Nasal Dryness/Congestion Stop: 07/13/25 12:46 Mental Health & Subst Abuse Tx Therapist Name of Therapist: [facility] Post Discharge Appointments Primary Care Physician Name Of Family Doctor/PCP: Sonu Odonnell
[2025-06-16] MEDS: diphenhydrAMINE 50 MG/ML VIAL IM STA (15:25)
[2025-06-16] MEDS: HALOPERIDOL LACTATE 5 MG/ML 1 ML VIAL IM PRN (15:25)
--- NOTE | 2025-06-16 15:32 | Communication Note ---
Date of Service: June 16, 2025 Seclusion/Restraint/Emergency Medication Note Date: 06/16/25 Patient assess for imminent danger of harm to others/them self Description of events leading to Psychiatric Emergency Intervention: Patient was banging the phone and doors. Aggressive with nursing staff. Escalating. Unable to be redirected. Mental Status Exam: Agitated and angry affect; psychotic; poor insight and judgement Impression: Acute psychiatric emergency intervention was necessary to reduce the patient's imminent risk of harm to others/them self. - Rationale for this seclusion/restraint order: refer to seclusion/restraint order - Emergency medication(s) administered: Haldol 5mg IM, Ativan 2mg IM, Benadryl 50mg IM - Rationale for emergency medications (if administered): refer to seclusion/restraint order - Patient response: Initially resistant citing that "big pharma" is behind this. Voluntarily received the medications. Plan: Patient returned to his room to rest. Continue to closely monitor patient as per seclusion/restraint criteria. No evidence of any physical harm, decompensation nor physical complaints. - Intervention initiated at: refer to seclusion/restraint order - Debriefing occurred at: 3:30pm Hang Quiroz MD
[2025-06-16] MEDS: diphenhydrAMINE 50 MG/ML VIAL ONE (16:36)
--- NOTE | 2025-06-17 08:51 | Psychiatric Progress Note ---
Date of Service June 17, 2025 Impression / Recommendations Impression LYN HARDEN is a 39-year-old M has a history of bipolar disorder, and was admitted on 06/13/25 12:08 on a 302 involuntary commitment for becky, psychosis and now on a 303 commitment. Concern for Bipolar 1 Becky with psychosis. Presents pressured speech, decreased need for sleep, high energy, elevated mood and erotomanic and protestant delusions about being in a love with a female and trying to help her and being a messenger of god. Intrusive with peers going into their room and following females on the unit inappropriately. Presents poor insight and judgement. Recent triggers include a woman messaging him on facebook for love and recent decrease of lithium from 1200mg to 900mg daily total 2-3 weeks ago by outpatient psychiatrist. Distant past becky suspected with more recent depressive episodes. Appears patient has been partially adherent to meds given subtherapeutic lithium level (0.3). A: Ongoing becky with very poor sleep and periods of agitation/aggression and very inappropriate with female peer. Delusions persist. Increasing paranoia, despite current [place] and high dose Klonopin, with revoking NAKITA for his ex- today and ongoing refusal of antipsychotics. Given ongoing symptoms includ ing delusions, paranoia, becky, lack of sleep and increasing symptoms despite [place] and Klonopin, I feel he meets criteria for medication over objection as a second opinion and that without treatment he remains at imminent risk of harm to himself and others if discharged in his current state. Depending on upcoming [place] level will then determine need for further [place] dose titration. Attempted to review risks/benefits/alternatives of various antipsychotic medications but he was not willing to discuss this further. Unable to complete AIMS assessment due to his irritability. Will get fasting lipid panel and HbA1c when [place] level is drawn in a few days to reduce need for multiple bloodwork lab draws to lessen pain. At this time I believe he requires treatment over objection using antipsychotic medication to prevent further worsening of psychosis and ongoing risk of harm to self, others and inability to meet self-care needs due to becky with psychosis. The purpose of treatment with antipsychotic medication is to protect his health and safety, protect the safety of others due to increasingly paranoid delusions and irritability and to treat the psychosis which is causing these symptoms and putting him at risk of harm to self and others. Without antipsychotic medication I feel he will continue to have ongoing becky with poor sleep, delusions and paranoia which is preventing him from engaging in any type of treatment, he is increasingly limiting involvement of support, remains at risk for further decompensation if sleep deprivation persists, and is at high risk for violence to self and others as these delusions persist and as he feels increasingly powerless in regards to perceived beliefs about needing to locate a female. MNPR due to becky, psychosis, intrusiveness with peers and staff Overall, I spent a total of 60 minutes with this case including review of chart records, nursing report, review of lab work, direct evaluation of the patient at bedside, counseling the patient, multidisciplinary team meeting, orders, and documentation in the electronic health record. (1) Becky: (2) Insomnia: (3) Delusions: (4) Unspecified psychosis not due to a substance or known physiological condition: (5) Bipolar 1 disorder: (6) HTN (hypertension): Plan 06/17/2025: -Start olanzapine 10mg po daily OR 10mg daily IM if he refuses as medication over objection 06/16/2025: Start hydroxyzine 100 mg at bedtime Increase [place] to 600mg QAM, 900mg HS [place] trough level on 06/20/25 evening 06/15/2025: Discontinue olanzapine 10 mg at bedtime (pt refusing) Start quetiapine 200 mg at bedtime 06/14/2025: Start [place] 600mg BID D/c Lorazepam Start Clonazepam 1mg QAM, 2mg HS Start Propranolol ER 80mg daily (home med) 06/13/25: The patient was admitted to the [facility] ([facility] health unit) on q15 min checks (behavioral with suicide precautions) for safety. The patient will participate in group, recreational, and milieu therapies and will be offered additional individual and family sessions as clinically appropriate. -Olanzapine 10mg HS -Lorazepam 2mg HS Inventory Assets Strengths: financial stability, family support Needs: insight into condition, medication management Suicide Risk Level Suicide Risk Level: Moderate (q15 min suicide checks) (denies SI but ongoing becky with emotional lability ) Risk Factors Assessment Male: Yes : No Do You Have Access To A Gun?: No Health Problems: No Mental Health Diagnoses: Yes Substance Use Disorders: No Previous Attempt: No Family History of Suicide: No Previous Psychiatric Hospitalization: Yes Hopelessness: No Protective Factors Assessment Episcopal Beliefs: Yes : No Responsible for Young Children: No Employed: No Stable Relationships: Yes Supportive Family: Yes Good Rapport with Provider: Yes Absence of Any Risk Factors Above: No Interval History Identifying Information LYN HARDEN is a 39-year-old M has a history of bipolar disorder, and was admitted on 06/13/25 12:08 on a 302 involuntary commitment for becky, psychosis. Chief Complaint "I'm trapped here like an animal". Review of Systems Sleep Information Total Hours of Sleep: 3.5 Sleep Comments: Ativan 2mg. poor sleep Meal Information Percent Meal Consumed - Breakfast: 100 Percent Meal Consumed - Lunch: 100 Percent Meal Consumed - Dinner: 100 Subjective Subjective Patient was seen & assessed and interval progress reviewed with treatment team. Yesterday was continuing to check the doors and required security involvement yesterday due to posturing at staff. Then even after IM medication was attempting to get into a female patient's room. Still hardly sleeping. Very broken sleep overnight, only about 30 minutes at a time. Paranoid about medications, thinks antipsychotics are poison. Today tells me his aggression yesterday was due to "being in here makes me worse". Tells me he never sleeps and thinks he slept "well" last night citing "I feel good, I'm not tired". Continues to refuse po antipsychotic medication after I discuss with him my concerns for his ongoing becky and focus on trying to get him some sleep. He doesn't feel he is experiencing becky. Feels that psychiatry is "evil" and makes reference to concerns about "big pharma" and "look at the state of the government". Minimizes his recent behaviors. Initially walks away from speaking with me telling me he is going to call his search engine optimization manager but then agrees to speak more with me. He denies any history of allergic reactions to any antipsychotics. Does endorse a history of akathisia and Parkinsonism side effects but cannot recall which medication caused this. He declines taking po Seroquel nor any other antipsychotics. Reviewed my concerns about his ongoing becky and that I feel this is the indicated treatment at this point given ongoing symptoms despite [place] and Klonopin. Physical Exam Psychiatric Orientation: alert and oriented x 3 Apperance: appropriately dressed and + disheveled Eye Contact: good eye contact Motor Behavior: + psychomotor agitation Speech: + loud speech Affect: + irritable affect Mood: + irritable mood Thought Process: + tangential thought process Thought Content: + paranoid and + delusions Suicidal Thoughts: denies suicidal thoughts Homicidal Thoughts: denies homicidal thoughts Insight: + limited insight Judgment: + limited judgement Vital Signs (Past 24 Hours) Last Vital Signs Temp 37.4 C 06/17/25 06:24 Pulse 118 H 06/17/25 06:24 Resp 18 06/17/25 06:24 BP 152/96 H 06/17/25 06:26 Pulse Ox 98 06/17/25 06:24 O2 Del Method Room Air 06/17/25 06:24 Results & Data ([facility]) Current Inpatient Medications Current Inpatient Medications: Current Inpatient Medications Acetaminophen (Acetaminophen 325 Mg Tab) 650 mg PO Q4H PRN PRN Reason: Headache or Minor Fever Stop: 07/13/25 12:46 Al Hydrox/Mg Hydrox/Simethicone (Aluminum/Magnesium Susp 30 Ml Udc) 30 ml PO Q4H PRN PRN Reason: GI Upset Stop: 07/13/25 12:46 Bismuth Subsalicylate (Bismuth Subsalicylate 262 Mg Chew) 2 tab PO Q30M PRN PRN Reason: Loose Stool/Diarrhea Stop: 07/13/25 12:46 Clonazepam (Clonazepam 1 Mg Tab) 1 mg PO DAILY TOM Stop: 07/14/25 10:59 Last Admin: 06/17/25 08:42 Dose: Not Given Clonazepam (Clonazepam 1 Mg Tab) 2 mg PO HS TOM Stop: 07/14/25 21:59 Last Admin: 06/16/25 19:49 Dose: 2 mg Haloperidol Lactate (Haloperidol Lactate 5 Mg/Ml 1 Ml Vial) 5 mg IM Q8 PRN PRN Reason: Agitation Stop: 07/13/25 12:53 Last Admin: 06/16/25 15:25 Dose: 5 mg Hydroxyzine HCl (Hydroxyzine Hcl 25 Mg Tab) 50 mg PO HSZ PRN PRN Reason: Insomnia Stop: 07/13/25 12:46 Last Admin: 06/15/25 23:46 Dose: 50 mg Hydroxyzine HCl (Hydroxyzine Hcl 25 Mg Tab) 25 mg PO Q4H PRN PRN Reason: Anxiety Stop: 07/13/25 12:46 Hydroxyzine HCl (Hydroxyzine Hcl 25 Mg Tab) 100 mg PO HS TOM Stop: 07/16/25 21:59 Last Admin: 06/17/25 05:32 Dose: Not Given [place] Carbonate ([place] Carbonate 300 Mg Tab) 900 mg PO HS TOM Stop: 07/15/25 21:59 Last Admin: 06/16/25 19:49 Dose: 900 mg [place] Carbonate ([place] Carbonate 300 Mg Tab) 600 mg PO DAILY TOM Stop: 07/16/25 08:59 Last Admin: 06/17/25 08:37 Dose: 600 mg Lorazepam (Lorazepam 2 Mg/1 Ml Vial) 2 mg IM Q8 PRN PRN Reason: Agitation Stop: 07/13/25 12:51 Last Admin: 06/16/25 15:25 Dose: 2 mg Lorazepam (Lorazepam 1 Mg Tab) 2 mg PO Q8 PRN PRN Reason: Agitation Stop: 07/13/25 14:36 Last Admin: 06/17/25 07:09 Dose: 2 mg Magnesium Hydroxide (Magnesium Hydroxide Susp 30 Ml Udc) 30 ml PO DAILY PRN PRN Reason: Constipation Stop: 07/13/25 12:46 Olanzapine (Olanzapine 5 Mg Tablet) 5 mg PO Q6 PRN PRN Reason: psychosis/agitation Stop: 07/13/25 14:25 Propranolol HCl (Propranolol Hcl La 80 Mg Capcr) 80 mg PO QAM TOM Stop: 07/14/25 09:29 Last Admin: 06/17/25 08:37 Dose: 80 mg Quetiapine Fumarate (Quetiapine Fumarate 200 Mg Tab) 200 mg PO HS TOM Stop: 07/15/25 21:59 Last Admin: 06/16/25 22:34 Dose: Not Given Sodium Chloride (Sodium Chloride 0.65% Na Soln 45 Ml ([place])) 1 - 2 sprays NA PRN PRN PRN Reason: Nasal Dryness/Congestion Stop: 07/13/25 12:46 Mental Health & Subst Abuse Tx Therapist [facility] Post Discharge Appointments Primary Care Physician Name Of Family Doctor/PCP: Sonu Odonnell
[2025-06-17] MEDS: OLANZapine 10 MG TAB PO SCH (11:16)
--- NOTE | 2025-06-18 08:38 | Psychiatric Progress Note ---
Date of Service June 18, 2025 Impression / Recommendations Impression LYN HARDEN is a 39-year-old M has a history of bipolar disorder, and was admitted on 06/13/25 12:08 on a 302 involuntary commitment for becky, psychosis and now on a 303 commitment. Concern for Bipolar 1 Becky with psychosis. Presents pressured speech, decreased need for sleep, high energy, elevated mood and erotomanic and rastafari delusions about being in a love with a female and trying to help her and being a messenger of god. Intrusive with peers going into their room and following females on the unit inappropriately. Presents poor insight and judgement. Recent triggers include a woman messaging him on facebook for love and recent decrease of lithium from 1200mg to 900mg daily total 2-3 weeks ago by outpatient psychiatrist. Distant past becky suspected with more recent depressive episodes. Appears patient has been partially adherent to meds given subtherapeutic lithium level (0.3). A: Ongoing becky but slept a little more last night. Tolerating olanzapine, will add olanzapine prn at HS to help continue to promote sleep. Continue to monitor for depression, as high risk for this as becky lessens. MNPR due to becky, psychosis, intrusiveness with peers and staff Overall, I spent a total of 35 minutes with this case including review of chart records, nursing report, review of lab work, direct evaluation of the patient at bedside, counseling the patient, multidisciplinary team meeting, orders, and documentation in the electronic health record. (1) Becky: (2) Insomnia: (3) Delusions: (4) Unspecified psychosis not due to a substance or known physiological condition: (5) Bipolar 1 disorder: (6) HTN (hypertension): Plan 06/18/2025: -Add olanzapine 10mg HS prn for insomnia -Discontinue Seroquel 06/17/2025: -Start olanzapine 10mg po daily OR 10mg daily IM if he refuses as medication over objection 06/16/2025: Start hydroxyzine 100 mg at bedtime Increase [place] to 600mg QAM, 900mg HS [place] trough level on 06/20/25 evening 06/15/2025: Discontinue olanzapine 10 mg at bedtime (pt refusing) Start quetiapine 200 mg at bedtime 06/14/2025: Start [place] 600mg BID D/c Lorazepam Start Clonazepam 1mg QAM, 2mg HS Start Propranolol ER 80mg daily (home med) 06/13/25: The patient was admitted to the [facility] ([facility] mental health unit) on q15 min checks (behavioral with suicide precautions) for safety. The patient will participate in group, recreational, and milieu therapies and will be offered additional individual and family sessions as clinically appropriate. -Olanzapine 10mg HS -Lorazepam 2mg HS Inventory Assets Strengths: financial stability, family support Needs: insight into condition, medication management Suicide Risk Level Suicide Risk Level: Moderate (q15 min suicide checks) (denies SI but ongoing becky with emotional lability ) Risk Factors Assessment Male: Yes : No Do You Have Access To A Gun?: No Health Problems: No Mental Health Diagnoses: Yes Substance Use Disorders: No Previous Attempt: No Family History of Suicide: No Previous Psychiatric Hospitalization: Yes Hopelessness: No Protective Factors Assessment Baptism Beliefs: Yes : No Responsible for Young Children: No Employed: No Stable Relationships: Yes Supportive Family: Yes Good Rapport with Provider: Yes Absence of Any Risk Factors Above: No Interval History Identifying Information LYN HARDEN is a 39-year-old M has a history of bipolar disorder, and was admitted on 06/13/25 12:08 on a 302 involuntary commitment for becky, psychosis. Chief Complaint "I was really bad this morning, depressed". Review of Systems Sleep Information Total Hours of Sleep: 6 Sleep Comments: Meal Information Percent Meal Consumed - Breakfast: 100 Percent Meal Consumed - Lunch: 100 Percent Meal Consumed - Dinner: 100 Subjective Subjective Patient was seen & assessed and interval progress reviewed with nursing and social work. Slept 6 hours overnight. Checking the doors less but still making demands to leave and stating that he won't be staying here. Reports his mood was depressed this morning. Doesn't like that olanzapine makes it so "I can't share my gifts with the world". he denies any side effects from Larson or other medications except that olanzapine makes him feel dull. Discussed goal of using it short term to ensure sleep improves. Focused on his goal of "finding love and get back to work". After meeting with me tells me "god bless you". Physical Exam Psychiatric Orientation: alert and oriented x 3 Apperance: appropriately dressed and + disheveled Eye Contact: good eye contact Motor Behavior: + psychomotor agitation Speech: normal rate/rhythm/volume of speech Affect: + labile affect, + irritable affect and + constricted affect Mood: + irritable mood Thought Process: + circumstantial thought process Thought Content: + delusions Suicidal Thoughts: denies suicidal thoughts Homicidal Thoughts: denies homicidal thoughts Insight: + limited insight Judgment: + limited judgement Vital Signs (Past 24 Hours) Last Vital Signs Temp 36.4 C L 06/18/25 06:45 Pulse 97 H 06/18/25 06:45 Resp 20 06/18/25 06:45 BP 119/82 06/18/25 06:45 Pulse Ox 99 06/18/25 06:45 O2 Del Method Room Air 06/18/25 06:45 Results & Data ([facility]) Current Inpatient Medications Current Inpatient Medications: Current Inpatient Medications Acetaminophen (Acetaminophen 325 Mg Tab) 650 mg PO Q4H PRN PRN Reason: Headache or Minor Fever Stop: 07/13/25 12:46 Al Hydrox/Mg Hydrox/Simethicone (Aluminum/Magnesium Susp 30 Ml Udc) 30 ml PO Q4H PRN PRN Reason: GI Upset Stop: 07/13/25 12:46 Bismuth Subsalicylate (Bismuth Subsalicylate 262 Mg Chew) 2 tab PO Q30M PRN PRN Reason: Loose Stool/Diarrhea Stop: 07/13/25 12:46 Clonazepam (Clonazepam 1 Mg Tab) 1 mg PO DAILY TOM Stop: 07/14/25 10:59 Last Admin: 06/17/25 10:16 Dose: 1 mg Clonazepam (Clonazepam 1 Mg Tab) 2 mg PO HS TOM Stop: 07/14/25 21:59 Last Admin: 06/17/25 19:48 Dose: 2 mg Haloperidol Lactate (Haloperidol Lactate 5 Mg/Ml 1 Ml Vial) 5 mg IM Q8 PRN PRN Reason: Agitation Stop: 07/13/25 12:53 Last Admin: 06/16/25 15:25 Dose: 5 mg Hydroxyzine HCl (Hydroxyzine Hcl 25 Mg Tab) 50 mg PO HSZ PRN PRN Reason: Insomnia Stop: 07/13/25 12:46 Last Admin: 06/15/25 23:46 Dose: 50 mg Hydroxyzine HCl (Hydroxyzine Hcl 25 Mg Tab) 25 mg PO Q4H PRN PRN Reason: Anxiety Stop: 07/13/25 12:46 Hydroxyzine HCl (Hydroxyzine Hcl 25 Mg Tab) 100 mg PO HS TOM Stop: 07/16/25 21:59 Last Admin: 06/17/25 19:48 Dose: 100 mg [place]arson Carbonate (Larson Carbonate 300 Mg Tab) 900 mg PO HS TOM Stop: 07/15/25 21:59 Last Admin: 06/17/25 19:50 Dose: 900 mg [place] Carbonate ([place]arson Carbonate 300 Mg Tab) 600 mg PO DAILY TOM Stop: 07/16/25 08:59 Last Admin: 06/17/25 08:37 Dose: 600 mg Lorazepam (Lorazepam 1 Mg Tab) 2 mg PO Q8 PRN PRN Reason: Agitation Stop: 07/13/25 14:36 Last Admin: 06/18/25 01:53 Dose: 2 mg Magnesium Hydroxide (Magnesium Hydroxide Susp 30 Ml Udc) 30 ml PO DAILY PRN PRN Reason: Constipation Stop: 07/13/25 12:46 Olanzapine (Olanzapine 5 Mg Tablet) 5 mg PO Q6 PRN PRN Reason: psychosis/agitation Stop: 07/13/25 14:25 Olanzapine (Olanzapine 10 Mg Tab) 10 mg PO QAM TOM Stop: 07/17/25 10:59 Last Admin: 06/17/25 11:16 Dose: 10 mg Olanzapine (Olanzapine 10 Mg/2.1 Ml Sdv) 10 mg IM QAM PRN PRN Reason: medication over objection Stop: 07/17/25 10:59 Propranolol HCl (Propranolol Hcl La 80 Mg Capcr) 80 mg PO QAM [facility] Stop: 07/14/25 09:29 Last Admin: 06/17/25 08:37 Dose: 80 mg Quetiapine Fumarate (Quetiapine Fumarate 200 Mg Tab) 200 mg PO HS [facility] Stop: 07/15/25 21:59 Last Admin: 06/17/25 21:18 Dose: Not Given Sodium Chloride (Sodium Chloride 0.65% Na Soln 45 Ml ([place])) 1 - 2 sprays NA PRN PRN PRN Reason: Nasal Dryness/Congestion Stop: 07/13/25 12:46 Mental Health & Subst Abuse Tx Therapist Name of Therapist: [facility] Post Discharge Appointments Primary Care Physician Name Of Family Doctor/PCP: Sonu Odonnell
[2025-06-18] MEDS ORDERED: OLANZapine 10 MG TAB PO PRN (16:46)
--- NOTE | 2025-06-19 09:16 | Psychiatric Progress Note ---
Date of Service June 19, 2025 Impression / Recommendations Impression LYN HARDEN is a 39-year-old M has a history of bipolar disorder, and was admitted on 06/13/25 12:08 on a 302 involuntary commitment for becky, psychosis and now on a 303 commitment. Concern for Bipolar 1 Becky with psychosis. Presents pressured speech, decreased need for sleep, high energy, elevated mood and erotomanic and mandaeism delusions about being in a love with a female and trying to help her and being a messenger of god. Intrusive with peers going into their room and following females on the unit inappropriately. Presents poor insight and judgement. Recent triggers include a woman messaging him on facebook for love and recent decrease of lithium from 1200mg to 900mg daily total 2-3 weeks ago by outpatient psychiatrist. Distant past becky suspected with more recent depressive episodes. Appears patient has been partially adherent to meds given subtherapeutic lithium level (0.3). A: Ongoing becky, slept less last night. Switched to po Seroquel as additionally mood stabilizer given his report of side effects with po olanzapine. Will trial additional low dose of Seroquel tonight to help with sleep and if he remains willing to take po Seroquel then can consolidate dose at HS to include me dication over objection. Continue to monitor for depression, as high risk for this as becky lessens. MNPR due to becky, psychosis, intrusiveness with peers and staff Overall, I spent a total of 40 minutes with this case including review of chart records, nursing report, review of lab work, direct evaluation of the patient at bedside, counseling the patient, multidisciplinary team meeting, orders, and documentation in the electronic health record. (1) Becky: (2) Insomnia: (3) Delusions: (4) Unspecified psychosis not due to a substance or known physiological condition: (5) Bipolar 1 disorder: (6) HTN (hypertension): Plan 06/19/2025: -Discontinue po olanzapine -Start seroquel 300mg daily or 10mg daily IM if he refuses as medication over objection -Start seroquel 100mg HS 06/18/2025: -Add olanzapine 10mg HS prn for insomnia -Discontinue Seroquel 06/17/2025: -Start olanzapine 10mg po daily OR 10mg daily IM if he refuses as medication over objection 06/16/2025: Start hydroxyzine 100 mg at bedtime Increase [place] to 600mg QAM, 900mg HS [place] trough level on 06/20/25 evening 06/15/2025: Discontinue olanzapine 10 mg at bedtime (pt refusing) Start quetiapine 200 mg at bedtime 06/14/2025: Start [place] 600mg BID D/c Lorazepam Start Clonazepam 1mg QAM, 2mg HS Start Propranolol ER 80mg daily (home med) 06/13/25: The patient was admitted to the [facility] ([facility] mental health unit) on q15 min checks (behavioral with suicide precautions) for safety. The patient will participate in group, recreational, and milieu therapies and will be offered additional individual and family sessions as clinically appropriate. -Olanzapine 10mg HS -Lorazepam 2mg HS Inventory Assets Strengths: financial stability, family support Needs: insight into condition, medication management Suicide Risk Level Suicide Risk Level: Moderate (q15 min suicide checks) (denies SI but ongoing becky with emotional lability and reports recent intrusive thoughts and concern for depression, but feels able to talk to staff ) Risk Factors Assessment Male: Yes : No Do You Have Access To A Gun?: No Health Problems: No Mental Health Diagnoses: Yes Substance Use Disorders: No Previous Attempt: No Family History of Suicide: No Previous Psychiatric Hospitalization: Yes Hopelessness: No Protective Factors Assessment Taoism Beliefs: Yes : No Responsible for Young Children: No Employed: No Stable Relationships: Yes Supportive Family: Yes Good Rapport with Provider: Yes Absence of Any Risk Factors Above: No Interval History Identifying Information LYN HARDEN is a 39-year-old M has a history of bipolar disorder, and was admitted on 06/13/25 12:08 on a 302 involuntary commitment for becky, psychosis. Chief Complaint "Getting prepared to be depressed". Review of Systems Sleep Information Total Hours of Sleep: 5 Meal Information Percent Meal Consumed - Breakfast: 80 Percent Meal Consumed - Lunch: 100 Percent Meal Consumed - Dinner: 100 Subjective Subjective Patient was seen & assessed and interval progress reviewed with treatment team.In the evening rated his mood 'content' but also 'trapped'. Fixated on female peer last evening. Got prn ativan overnight. Only slept for 5 hours. Refused po olanzapine and Klonopin this morning but then agreed to take Klonopin. Later this morning asking to sign out against medical advice. Refused po olanzapine this morning requesting to speak with me first. Tells me that olanzapine is causing him to develop akathisia and "intrusive negative thoughts". He asks to try Seroquel instead as this worked for him in the past, though he doesn't like the sedating effects and therefore hopes he doesn't have to take it long-term. Discussed reasonable to use Seroquel po but that if he refuses po then closest equivalent option as IM formulation is olanzapine which he is agreeable with. Feels "really anxious because I'm trapped here". Did sign new NAKITA for his ex-. Feels he will get depressed due to hospitalization and need for additional medication. Tried to provide psychoeducation about potential benefits of antipsychotic medication for sleep promotion, bceky treatment and possible benefit for bipolar depression. He then discusses his belief/experience that [place] works best for him when titrated according to his symptoms and not based on blood level. Reviewed goal of blood level on Sunday morning to ensure he is not within or nearing toxic range given narrow therapeutic dose range with [place]. he denies any other questions nor concerns nor new symptoms. He napped briefly in the afternoon. Physical Exam Psychiatric Orientation: alert and oriented x 3 Apperance: appropriately dressed and + disheveled Eye Contact: good eye contact Motor Behavior: + psychomotor agitation Speech: normal rate/rhythm/volume of speech Affect: + labile affect, + irritable affect and + constricted affect Mood: + anxious mood and + irritable mood Thought Process: + circumstantial thought process Thought Content: + delusions Suicidal Thoughts: denies suicidal thoughts Homicidal Thoughts: denies homicidal thoughts Insight: + limited insight Judgment: + limited judgement Vital Signs (Past 24 Hours) Last Vital Signs Temp 36.6 C 06/19/25 06:30 Pulse 82 06/19/25 06:31 Resp 18 06/19/25 06:30 BP 130/84 06/19/25 06:31 Pulse Ox 99 06/18/25 06:45 O2 Del Method Room Air 06/18/25 06:45 Results & Data (U) Current Inpatient Medications Current Inpatient Medications: Current Inpatient Medications Acetaminophen (Acetaminophen 325 Mg Tab) 650 mg PO Q4H PRN PRN Reason: Headache or Minor Fever Stop: 07/13/25 12:46 Al Hydrox/Mg Hydrox/Simethicone (Aluminum/Magnesium Susp 30 Ml Udc) 30 ml PO Q4H PRN PRN Reason: GI Upset Stop: 07/13/25 12:46 Bismuth Subsalicylate (Bismuth Subsalicylate 262 Mg Chew) 2 tab PO Q30M PRN PRN Reason: Loose Stool/Diarrhea Stop: 07/13/25 12:46 Clonazepam (Clonazepam 1 Mg Tab) 1 mg PO DAILY TOM Stop: 07/14/25 10:59 Last Admin: 06/19/25 08:47 Dose: 1 mg Clonazepam (Clonazepam 1 Mg Tab) 2 mg PO HS TOM Stop: 07/14/25 21:59 Last Admin: 06/18/25 20:29 Dose: 2 mg Haloperidol Lactate (Haloperidol Lactate 5 Mg/Ml 1 Ml Vial) 5 mg IM Q8 PRN PRN Reason: Agitation Stop: 07/13/25 12:53 Last Admin: 06/16/25 15:25 Dose: 5 mg Hydroxyzine HCl (Hydroxyzine Hcl 25 Mg Tab) 25 mg PO Q4H PRN PRN Reason: Anxiety Stop: 07/13/25 12:46 Last Admin: 06/18/25 18:54 Dose: 25 mg Hydroxyzine HCl (Hydroxyzine Hcl 25 Mg Tab) 100 mg PO HS [facility] Stop: 07/16/25 21:59 Last Admin: 06/18/25 20:28 Dose: 100 mg [place] Carbonate ([place] Carbonate 300 Mg Tab) 900 mg PO HS TOM Stop: 07/15/25 21:59 Last Admin: 06/18/25 20:28 Dose: 900 mg [place] Carbonate ([place] Carbonate 300 Mg Tab) 600 mg PO DAILY TOM Stop: 07/16/25 08:59 Last Admin: 06/19/25 08:38 Dose: 600 mg Lorazepam (Lorazepam 1 Mg Tab) 2 mg PO Q8 PRN PRN Reason: Agitation Stop: 07/13/25 14:36 Last Admin: 06/19/25 01:51 Dose: 2 mg Magnesium Hydroxide (Magnesium Hydroxide Susp 30 Ml Udc) 30 ml PO DAILY PRN PRN Reason: Constipation Stop: 07/13/25 12:46 Olanzapine (Olanzapine 5 Mg Tablet) 5 mg PO Q6 PRN PRN Reason: psychosis/agitation Stop: 07/13/25 14:25 Olanzapine (Olanzapine 10 Mg Tab) 10 mg PO QAM TOM Stop: 07/17/25 10:59 Last Admin: 06/18/25 08:55 Dose: 10 mg Olanzapine (Olanzapine 10 Mg/2.1 Ml Sdv) 10 mg IM QAM PRN PRN Reason: medication over objection Stop: 07/17/25 10:59 Olanzapine (Olanzapine 10 Mg Tab) 10 mg PO HS PRN PRN Reason: insomnia Stop: 07/18/25 21:59 Propranolol HCl (Propranolol Hcl La 80 Mg Capcr) 80 mg PO QAM TOM Stop: 07/14/25 09:29 Last Admin: 06/19/25 08:38 Dose: 80 mg Sodium Chloride (Sodium Chloride 0.65% Na Soln 45 Ml ([place])) 1 - 2 sprays NA PRN PRN PRN Reason: Nasal Dryness/Congestion Stop: 07/13/25 12:46 Mental Health & Subst Abuse Tx Therapist [facility] Therapist: [facility] Post Discharge Appointments Primary Care Physician Name Of Family Doctor/PCP: Sonu Odonnell Partial or Psych Rehab Name of Partial or Psych Rehab: [facility] Phone Number of Partial or Psych Rehab: [phone]
--- NOTE | 2025-06-20 09:35 | Psychiatric Progress Note ---
Date of Service June 20, 2025 Impression / Recommendations Impression LYN HARDEN is a 39-year-old M has a history of bipolar disorder, and was admitted on 06/13/25 12:08 on a 302 involuntary commitment for becky, psychosis and now on a 303 commitment. Concern for Bipolar 1 Becky with psychosis. Presents pressured speech, decreased need for sleep, high energy, elevated mood and erotomanic and moravian delusions about being in a love with a female and trying to help her and being a messenger of god. Intrusive with peers going into their room and following females on the unit inappropriately. Presents poor insight and judgement. Recent triggers include a woman messaging him on facebook for love and recent decrease of lithium from 1200mg to 900mg daily total 2-3 weeks ago by outpatient psychiatrist. Distant past becky suspected with more recent depressive episodes. Appears patient has been partially adherent to meds given subtherapeutic lithium level (0.3). A: Ongoing becky with minimal sleep. Tolerating Seroquel, will titrate to 600mg HS tonight to help with sleep. He consents to this. Fasting lipid panel, HbA1c and [place] level tomorrow AM. MNPR due to becky, psychosis, intrusiveness with peers and staff Overall, I spent a total of 36 minutes with this case including review of chart records, nursing report, review of lab work, direct evaluation of the patient at bedside, counseling the patient, multidisciplinary team meeting, orders, and documentation in the electronic health record. (1) Becky: (2) Insomnia: (3) Delusions: (4) Unspecified psychosis not due to a substance or known physiological condition: (5) Bipolar 1 disorder: (6) HTN (hypertension): Plan 06/20/2025: -Increase Seroquel to 600mg HS and 100mg daily with lunch -Discontinue Seroquel 300mg qAM 06/19/2025: -Discontinue po olanzapine -Start seroquel 300mg daily or 10mg daily IM if he refuses as medication over objection -Start seroquel 100mg HS 06/18/2025: -Add olanzapine 10mg HS prn for insomnia -Discontinue Seroquel 06/17/2025: -Start olanzapine 10mg po daily OR 10mg daily IM if he refuses as medication over objection 06/16/2025: Start hydroxyzine 100 mg at bedtime Increase [place] to 600mg QAM, 900mg HS [place] trough level on 06/20/25 evening 06/15/2025: Discontinue olanzapine 10 mg at bedtime (pt refusing) Start quetiapine 200 mg at bedtime 06/14/2025: Start [place] 600mg BID D/c Lorazepam Start Clonazepam 1mg QAM, 2mg HS Start Propranolol ER 80mg daily (home med) 06/13/25: The patient was admitted to the [facility] ([facility] health unit) on q15 min checks (behavioral with suicide precautions) for safety. The patient will participate in group, recreational, and milieu therapies and will be offered additional individual and family sessions as clinically appropriate. -Olanzapine 10mg HS -Lorazepam 2mg HS Inventory Assets Strengths: financial stability, family support Needs: insight into condition, medication management Suicide Risk Level Suicide Risk Level: Moderate (q15 min suicide checks) (denies SI but ongoing becky with emotional lability and reports recent intrusive thoughts and concern for depression, but feels able to talk to staff ) Risk Factors Assessment Male: Yes : No Do You Have Access To A Gun?: No Health Problems: No Mental Health Diagnoses: Yes Substance Use Disorders: No Previous Attempt: No Family History of Suicide: No Previous Psychiatric Hospitalization: Yes Hopelessness: No Protective Factors Assessment Catholic Beliefs: Yes : No Responsible for Young Children: No Employed: No Stable Relationships: Yes Supportive Family: Yes Good Rapport with Provider: Yes Absence of Any Risk Factors Above: No Interval History Identifying Information LYN HARDEN is a 39-year-old M has a history of bipolar disorder, and was admitted on 06/13/25 12:08 on a 302 involuntary commitment for becky, psychosis. Now on a 303 commitment. Chief Complaint "I'm anxious because I'm trapped here". Review of Systems Sleep Information Total Hours of Sleep: 4.5 Sleep Comments: Awake early Meal Information Percent Meal Consumed - Breakfast: 100 Percent Meal Consumed - Lunch: 100 Percent Meal Consumed - Dinner: 100 Subjective Subjective Patient was seen & assessed and interval progress reviewed with nursing and social work. napped for about an hour yesterday afternoon then only slept 4 hours overnight. Attended most groups yesterday and was tangential at times but easily redirected. Kind to male peer. Irritable last evening but less, checking doors but less forcefully. Last night reported his mood was "depressed". Today refused Seroquel this morning stating it's causing intrusive OCD thoughts. Later he decided to take po Seroquel. Tells me he prefers Seroquel to other options as we don't have Saphris available on hospital formulary. He reflects on feeling that his OCD intrusive self-harm thoughts have worsened but he denies any intent to act on these and continues to feel safe. He reflected to RN of previously feeling that he was a profit of God. Mentions he still wants to make contact with the woman he was in a relationship with that brought him to [place]. Encouraged him to seek his family's input about this and that they could reach out to alert her that he's in the hospital. He agrees this is a reasonable approach to letting her know he's ok. He'd like to try to get more sleep and wants to try a high dose of Seroquel to see if this will help. Physical Exam Psychiatric Orientation: alert and oriented x 3 Apperance: appropriately dressed and + disheveled Eye Contact: good eye contact Motor Behavior: + psychomotor agitation Speech: normal rate/rhythm/volume of speech Affect: + constricted affect Mood: + anxious mood and + irritable mood Thought Process: + circumstantial thought process Thought Content: + delusions Suicidal Thoughts: denies suicidal thoughts Homicidal Thoughts: denies homicidal thoughts Insight: + limited insight Judgment: + limited judgement Vital Signs (Past 24 Hours) Last Vital Signs Temp 36.4 C L 06/20/25 06:37 Pulse 70 06/20/25 06:37 Resp 18 06/20/25 06:37 BP 129/88 06/20/25 06:37 Pulse Ox 99 06/18/25 06:45 O2 Del Method Room Air 06/18/25 06:45 Results & Data (U) Current Inpatient Medications Current Inpatient Medications: Current Inpatient Medications Acetaminophen (Acetaminophen 325 Mg Tab) 650 mg PO Q4H PRN PRN Reason: Headache or Minor Fever Stop: 07/13/25 12:46 Al Hydrox/Mg Hydrox/Simethicone (Aluminum/Magnesium Susp 30 Ml Udc) 30 ml PO Q4H PRN PRN Reason: GI Upset Stop: 07/13/25 12:46 Bismuth Subsalicylate (Bismuth Subsalicylate 262 Mg Chew) 2 tab PO Q30M PRN PRN Reason: Loose Stool/Diarrhea Stop: 07/13/25 12:46 Clonazepam (Clonazepam 1 Mg Tab) 1 mg PO DAILY TOM Stop: 07/14/25 10:59 Last Admin: 06/20/25 08:56 Dose: 1 mg Clonazepam (Clonazepam 1 Mg Tab) 2 mg PO HS [facility] Stop: 07/14/25 21:59 Last Admin: 06/19/25 20:20 Dose: 2 mg Haloperidol Lactate (Haloperidol Lactate 5 Mg/Ml 1 Ml Vial) 5 mg IM Q8 PRN PRN Reason: Agitation Stop: 07/13/25 12:53 Last Admin: 06/16/25 15:25 Dose: 5 mg Hydroxyzine HCl (Hydroxyzine Hcl 25 Mg Tab) 25 mg PO Q4H PRN PRN Reason: Anxiety Stop: 07/13/25 12:46 Last Admin: 06/18/25 18:54 Dose: 25 mg Hydroxyzine HCl (Hydroxyzine Hcl 25 Mg Tab) 100 mg PO [facility] Stop: 07/16/25 21:59 Last Admin: 06/19/25 20:18 Dose: 100 mg [place] Carbonate ([place] Carbonate 300 Mg Tab) 900 mg PO HS [facility] Stop: 07/15/25 21:59 Last Admin: 06/19/25 20:18 Dose: 900 mg [place] Carbonate ([place] Carbonate 300 Mg Tab) 600 mg PO DAILY TOM Stop: 07/16/25 08:59 Last Admin: 06/20/25 08:56 Dose: 600 mg Lorazepam (Lorazepam 1 Mg Tab) 2 mg PO Q8 PRN PRN Reason: Agitation Stop: 07/13/25 14:36 Last Admin: 06/19/25 20:23 Dose: 2 mg Magnesium Hydroxide (Magnesium Hydroxide Susp 30 Ml Udc) 30 ml PO DAILY PRN PRN Reason: Constipation Stop: 07/13/25 12:46 Olanzapine (Olanzapine 5 Mg Tablet) 5 mg PO Q6 PRN PRN Reason: psychosis/agitation Stop: 07/13/25 14:25 Olanzapine (Olanzapine 10 Mg/2.1 Ml Sdv) 10 mg IM QAM PRN PRN Reason: medication over objection Stop: 07/17/25 10:59 Propranolol HCl (Propranolol Hcl La 80 Mg Capcr) 80 mg PO QAM TOM Stop: 07/14/25 09:29 Last Admin: 06/20/25 08:56 Dose: 80 mg Quetiapine Fumarate (Quetiapine Fumarate 300 Mg Tablet) 300 mg PO DAILY TOM Stop: 07/19/25 10:44 Last Admin: 06/19/25 11:27 Dose: 300 mg Quetiapine Fumarate (Quetiapine Fumarate 100 Mg Tablet) 100 mg PO HS TOM Stop: 07/19/25 21:59 Last Admin: 06/19/25 20:18 Dose: 100 mg Sodium Chloride (Sodium Chloride 0.65% Na Soln 45 Ml ([place])) 1 - 2 sprays NA PRN PRN PRN Reason: Nasal Dryness/Congestion Stop: 07/13/25 12:46 Mental Health & Subst Abuse Tx Therapist Name of Therapist: [facility]charge Appointments Primary Care Physician Name Of Family Doctor/PCP: Sonu Odonnell Partial or Psych Rehab Name of Partial or Psych Rehab: [facility] Phone Number of Partial or Psych Rehab: [phone]
[2025-06-21 08:17] LABS: Cholesterol 170.0 mg/dl (0-200); HDL Cholesterol 24.0 mg/dl; Triglycerides 373.0 mg/dl (0-150)
[2025-06-21 08:51] LABS: Hemoglobin A1C 5.4 % (4.5-5.6)
--- NOTE | 2025-06-21 09:22 | Psychiatric Progress Note ---
Date of Service June 21, 2025 Impression / Recommendations Impression LYN HARDEN is a 39-year-old M has a history of bipolar disorder, and was admitted on 06/13/25 12:08 on a 302 involuntary commitment for becky, psychosis and now on a 303 commitment. Concern for Bipolar 1 Becky with psychosis. Presents pressured speech, decreased need for sleep, high energy, elevated mood and erotomanic and adventist delusions about being in a love with a female and trying to help her and being a messenger of god. Intrusive with peers going into their room and following females on the unit inappropriately. Presents poor insight and judgement. Recent triggers include a woman messaging him on facebook for love and recent decrease of lithium from 1200mg to 900mg daily total 2-3 weeks ago by outpatient psychiatrist. Distant past becky suspected with more recent depressive episodes. Appears patient has been partially adherent to meds given subtherapeutic lithium level (0.3) on admission. A: Slept more last night, some lessening of becky but still focused on recent acquaintance at times. Thought process becoming more organized. He tolerated higher dose of Seroquel, took it willingly last night, and slept for >7 hours for the first time in weeks. Given increased sedation and reported feeling of unsteady gait this morning will discontinue morning dose of Klonopin. Li level at 1.0 mmol/L, within target for becky treatment. HbA1c normal. Fasting lipid panel notable for elevated triglycerides, he agrees to discuss this further with his PCP. MNPR due to becky, psychosis, recent intrusiveness with peers and staff Overall, I spent a total of 45 minutes with this case including review of chart records, nursing report, review of lab work, direct evaluation of the patient at bedside, counseling the patient, multidisciplinary team meeting, orders, and documentation in the electronic health record. (1) Becky: (2) Insomnia: (3) Delusions: (4) Unspecified psychosis not due to a substance or known physiological condition: (5) Bipolar 1 disorder: (6) HTN (hypertension): (7) High triglycerides: Plan 06/21/2025: -Discontinue Seroquel 100mg daily with lunch -Discontinue Klonopin 1mg daily, continue Klonopin 2mg HS to encourage ongoing sleep promotion 06/20/2025: -Increase Seroquel to 600mg HS and 100mg daily with lunch -Discontinue Seroquel 300mg qAM 06/19/2025: -Discontinue po olanzapine -Start seroquel 300mg daily or 10mg daily IM if he refuses as medication over objection -Start seroquel 100mg HS 06/18/2025: -Add olanzapine 10mg HS prn for insomnia -Discontinue Seroquel 06/17/2025: -Start olanzapine 10mg po daily OR 10mg daily IM if he refuses as medication over objection 06/16/2025: Start hydroxyzine 100 mg at bedtime Increase [place] to 600mg QAM, 900mg HS [place] trough level on 06/20/25 evening 06/15/2025: Discontinue olanzapine 10 mg at bedtime (pt refusing) Start quetiapine 200 mg at bedtime 06/14/2025: Start [place] 600mg BID D/c Lorazepam Start Clonazepam 1mg QAM, 2mg HS Start Propranolol ER 80mg daily (home med) 06/13/25: The patient was admitted to the [facility] ([facility] mental health unit) on q15 min checks (behavioral with suicide precautions) for safety. The patient will participate in group, recreational, and milieu therapies and will be offered additional individual and family sessions as clinically appropriate. -Olanzapine 10mg HS -Lorazepam 2mg HS Inventory Assets Strengths: financial stability, family support Needs: insight into condition, medication management Suicide Risk Level Suicide Risk Level: Moderate (q15 min suicide checks) (denies SI but ongoing becky with emotional lability and reports recent intrusive thoughts and concern for depression, but feels able to talk to staff ) Risk Factors Assessment Male: Yes : No Do You Have Access To A Gun?: No Health Problems: No Mental Health Diagnoses: Yes Substance Use Disorders: No Previous Attempt: No Family History of Suicide: No Previous Psychiatric Hospitalization: Yes Hopelessness: No Protective Factors Assessment Episcopalian Beliefs: Yes : No Responsible for Young Children: No Employed: No Stable Relationships: Yes Supportive Family: Yes Good Rapport with Provider: Yes Absence of Any Risk Factors Above: No Interval History Identifying Information LYN HARDEN is a 39-year-old M has a history of bipolar disorder, and was admitted on 06/13/25 12:08 on a 302 involuntary commitment for becky, psychosis. Now on a 303 commitment. Chief Complaint "I'm doing ok, pretty tired". Review of Systems Sleep Information Total Hours of Sleep: 7.5 Sleep Comments: Meal Information Percent Meal Consumed - Breakfast: 100 Percent Meal Consumed - Lunch: 100 Percent Meal Consumed - Dinner: 100 Subjective Subjective Patient was seen & assessed and interval progress reviewed with nursing and social work. Slept for 7.5 hours last night. Only awake once overnight. [place] more tired this morning and felt unsteady after morning Klonopin. He wonders if we can reduce this. Feeling more like himself, wonders about longer-term medications, discussed goal of eventual use of [place] monotherapy but need to use Seroquel and Klonopin to continue to help with sleep promotion and ensure ongoing treatment of becky. Physical Exam Psychiatric Orientation: alert and oriented x 3 Apperance: appropriately dressed and + disheveled Eye Contact: good eye contact Motor Behavior: + psychomotor agitation Speech: normal rate/rhythm/volume of speech Affect: + constricted affect Mood: + anxious mood Thought Process: + circumstantial thought process Thought Content: + preoccupation Suicidal Thoughts: denies suicidal thoughts Homicidal Thoughts: denies homicidal thoughts Insight: + fair insight Judgment: + fair judgement Vital Signs (Past 24 Hours) Last Vital Signs Temp 36.6 C 06/21/25 06:28 Pulse 88 06/21/25 06:29 Resp 16 06/21/25 06:28 BP 121/82 06/21/25 06:29 Pulse Ox 99 06/18/25 06:45 O2 Del Method Room Air 06/18/25 06:45 [facility] & [facility] Laboratory Results Laboratory Results - last 24 hr 06/21/25 07:34 Estimat Average Glucose 108 Hemoglobin A1c 5.4 Triglycerides 373 H Cholesterol 170 LDL Cholesterol, Calc 71 VLDL Cholesterol, Calc 75 H HDL Cholesterol 24 Cholesterol/HDL Ratio 7.1 H [place] Pending Current Inpatient Medications Current Inpatient Medications: Current Inpatient Medications Acetaminophen (Acetaminophen 325 Mg Tab) 650 mg PO Q4H PRN PRN Reason: Headache or Minor Fever Stop: 07/13/25 12:46 Al Hydrox/Mg Hydrox/Simethicone (Aluminum/Magnesium Susp 30 Ml Udc) 30 ml PO Q4H PRN PRN Reason: GI Upset Stop: 07/13/25 12:46 Bismuth Subsalicylate (Bismuth Subsalicylate 262 Mg Chew) 2 tab PO Q30M PRN PRN Reason: Loose Stool/Diarrhea Stop: 07/13/25 12:46 Clonazepam (Clonazepam 1 Mg Tab) 1 mg PO DAILY TOM Stop: 07/14/25 10:59 Last Admin: 06/20/25 08:56 Dose: 1 mg Clonazepam (Clonazepam 1 Mg Tab) 2 mg PO HS TOM Stop: 07/14/25 21:59 Last Admin: 06/20/25 21:07 Dose: 2 mg Haloperidol Lactate (Haloperidol Lactate 5 Mg/Ml 1 Ml Vial) 5 mg IM Q8 PRN PRN Reason: Agitation Stop: 07/13/25 12:53 Last Admin: 06/16/25 15:25 Dose: 5 mg Hydroxyzine HCl (Hydroxyzine Hcl 25 Mg Tab) 25 mg PO Q4H PRN PRN Reason: Anxiety Stop: 07/13/25 12:46 Last Admin: 06/18/25 18:54 Dose: 25 mg Hydroxyzine HCl (Hydroxyzine Hcl 25 Mg Tab) 100 mg PO HS TOM Stop: 07/16/25 21:59 Last Admin: 06/20/25 21:40 Dose: 100 mg [place] Carbonate ([place] Carbonate 300 Mg Tab) 900 mg PO HS TOM Stop: 07/15/25 21:59 Last Admin: 06/20/25 21:41 Dose: 900 mg [place] Carbonate ([place] Carbonate 300 Mg Tab) 600 mg PO DAILY TOM Stop: 07/16/25 08:59 Last Admin: 06/20/25 08:56 Dose: 600 mg Lorazepam (Lorazepam 1 Mg Tab) 2 mg PO Q8 PRN PRN Reason: Agitation Stop: 07/13/25 14:36 Last Admin: 06/20/25 15:30 Dose: 2 mg Magnesium Hydroxide (Magnesium Hydroxide Susp 30 Ml Udc) 30 ml PO DAILY PRN PRN Reason: Constipation Stop: 07/13/25 12:46 Olanzapine (Olanzapine 5 Mg Tablet) 5 mg PO Q6 PRN PRN Reason: psychosis/agitation Stop: 07/13/25 14:25 Olanzapine (Olanzapine 10 Mg/2.1 Ml Sdv) 10 mg IM QAM PRN PRN Reason: medication over objection Stop: 07/17/25 10:59 Propranolol HCl (Propranolol Hcl La 80 Mg Capcr) 80 mg PO QAM TOM Stop: 07/14/25 09:29 Last Admin: 06/20/25 08:56 Dose: 80 mg Quetiapine Fumarate (Quetiapine Fumarate 300 Mg Tablet) 600 mg PO HS TOM Stop: 07/20/25 21:59 Last Admin: 06/20/25 21:39 Dose: 600 mg Quetiapine Fumarate (Quetiapine Fumarate 100 Mg Tablet) 100 mg PO DAILYBL TOM Stop: 07/21/25 11:59 Sodium Chloride (Sodium Chloride 0.65% Na Soln 45 Ml ([place])) 1 - 2 sprays NA PRN PRN PRN Reason: Nasal Dryness/Congestion Stop: 07/13/25 12:46 Mental Health & Subst Abuse Tx Therapist [facility] Therapist: [facility] Appoint[facility] Primary Care Physician Name Of Family Doctor/PCP: Sonu Odonnell Partial or Psych Rehab Name of Partial or Psych Rehab: [facility] Phone Number of Partial or Psych Rehab: [phone]
[2025-06-21] MEDS: LORazepam 1 MG TAB PO PRN (18:39)
[2025-06-21] MEDS: BISMUTH SUBSALICYLATE 262 MG CHEW PO PRN (18:52)
--- NOTE | 2025-06-22 09:14 | Psychiatric Progress Note ---
Date of Service June 22, 2025 Impression / Recommendations Impression LYN HARDEN is a 39-year-old M has a history of bipolar disorder, and was admitted on 06/13/25 12:08 on a 302 involuntary commitment for becky, psychosis and now on a 303 commitment. On admission: "Concern for Bipolar 1 Becky with psychosis. Presented on admission with pressured speech, decreased need for sleep, high energy, elevated mood and erotomanic and orthodox delusions about being in a love with a female and trying to help her and being a messenger of god. Intrusive with peers going into their room and following females on the unit inappropriately. Presents poor insight and judgement. Recent triggers include a woman messaging him on facebook for love and recent decrease of lithium from 1200mg to 900mg daily total 2-3 weeks ago by outpatient psychiatrist. Distant past becky suspected with more recent depressive episodes. Appears patient has been partially adherent to meds given subtherapeutic lithium level (0.3) on admission." A: Slept 5 hours last night. He tolerated higher dose of Seroquel, took it willingly last night. Li level at 1.0 mmol/L, within target for becky treatment. Fasting lipid panel notable for elevated triglycerides, offered fish oil. Discussed dry mouth concern and recommended Biotene. MNPR due to bekcy, psychosis, recent intrusiveness with peers and staff Overall, I spent a total of 45 minutes with this case including review of chart records, nursing report, review of lab work, direct evaluation of the patient at bedside, counseling the patient, multidisciplinary team meeting, orders, and documentation in the electronic health record. (1) Becky: Continue [place] and Seroquel (2) Insomnia: Sleep hygiene (3) Delusions: (4) Unspecified psychosis not due to a substance or known physiological condition: (5) Bipolar 1 disorder: (6) HTN (hypertension): (7) High triglycerides: Fish oil 1000 mg po qday to start. May titrate up if well tolerated. Plan 06/22/25: -Continue [place] without changes -Continue Seroquel without changes -Discontinue Hydroxyzine 06/21/2025: -Discontinue Seroquel 100mg daily with lunch -Discontinue Klonopin 1mg daily, continue Klonopin 2mg HS to encourage ongoing sleep promotion 06/20/2025: -Increase Seroquel to 600mg HS and 100mg daily with lunch -Discontinue Seroquel 300mg qAM 06/19/2025: -Discontinue po olanzapine -Start seroquel 300mg daily or 10mg daily IM if he refuses as medication over objection -Start seroquel 100mg HS 06/18/2025: -Add olanzapine 10mg HS prn for insomnia -Discontinue Seroquel 06/17/2025: -Start olanzapine 10mg po daily OR 10mg daily IM if he refuses as medication over objection 06/16/2025: Start hydroxyzine 100 mg at bedtime Increase [place] to 600mg QAM, 900mg HS [place] trough level on 06/20/25 evening 06/15/2025: Discontinue olanzapine 10 mg at bedtime (pt refusing) Start quetiapine 200 mg at bedtime 06/14/2025: Start [place] 600mg BID D/c Lorazepam Start Clonazepam 1mg QAM, 2mg HS Start Propranolol ER 80mg daily (home med) 06/13/25: The patient was admitted to the [facility] ([facility]) on q15 min checks (behavioral with suicide precautions) for safety. The patient will participate in group, recreational, and milieu therapies and will be offered additional individual and family sessions as clinically appropriate. -Olanzapine 10mg HS -Lorazepam 2mg HS Inventory Assets Strengths: financial stability, family support Needs: insight into condition, medication management Suicide Risk Level Suicide Risk Level: Moderate (q15 min suicide checks) (denies SI but ongoing becky with emotional lability and reports recent intrusive thoughts and concern for depression, but feels able to talk to staff ) Risk Factors Assessment Male: Yes : No Do You Have Access To A Gun?: No Health Problems: No Mental Health Diagnoses: Yes Substance Use Disorders: No Previous Attempt: No Family History of Suicide: No Previous Psychiatric Hospitalization: Yes Hopelessness: No Protective Factors Assessment Religion Beliefs: Yes : No Responsible for Young Children: No Employed: No Stable Relationships: Yes Supportive Family: Yes Good Rapport with Provider: Yes Absence of Any Risk Factors Above: No Interval History Identifying Information LYN HARDEN is a 39-year-old M has a history of bipolar disorder, and was admitted on 06/13/25 12:08 on a 302 involuntary commitment for becky, psychosis. Now on a 303 commitment. Chief Complaint "[place] has been the medication for me. My doctor lowered from 1200 to 900 because I work in the heat. I got manic. Overall I am feeling better. I don't think that I am elated. My thoguhtsalway run fast because I have ADHD." Review of Systems Sleep Information Total Hours of Sleep: 5 Meal Information Percent Meal Consumed - Breakfast: 100 Percent Meal Consumed - Lunch: 100 Percent Meal Consumed - Dinner: 100 Subjective Subjective Patient was seen & assessed and interval progress reviewed with during treatment team with nursing and social work. Patient was initially calm but became irritable as the interview progressed. He stated he has tried several medications for the last 20 years. Sleep has been a problem for him also for many years. Believes recent episode of becky happened after lowering lithium. He indicated that his regular dose has been 1200mg/day. Wishes to continue [place]. He is aware that the current dose is higher (600+900).We discussed his lithium level result (received today) which is within therapeutic level. Patient explained that he has a long history of "muscle fatigue, tremors." NO tremors on exam today. He is less inclined to stay on Seroquel but agreed to keep the medication for now. Reported difficulty swallowing after Seroquel, likely due to dry mouth. We discussed discontinuing Vistaril to decrease anticholinergic load. He agreed with he plan. Patient perseverated on wanting to be discharged to a hotel today. He presented with unreasonable demands about why he needed to be discharged today. Initial stated his parents would drive 12 hours to pick him up but then state he would go to a hotel and catch a flight at a later time. Claims that keeping him in the hospital is prove that the treatment team "wants me to suffer." Physical Exam Mental Examination Appearance: Unkempt Eye Contact: Direct Eye Contact Motor Behavior: Unremarkable Speech: Excessive Mood: Anxious and Irritable Affect: Congruent Thought Process: Perseveration Thought Content: Tangential, Perseveration and Obsessional Thoughts Hallucinations: None (unclear) Insight: Poor Judgement: Poor Psychiatric Orientation: alert and oriented x 3 Apperance: + disheveled Eye Contact: good eye contact Motor Behavior: + psychomotor agitation Speech: + loud speech and normal rate/rhythm/volume of speech Affect: + irritable affect and + constricted affect Mood: + anxious mood and + irritable mood Thought Process: + circumstantial thought process and + tangential thought process Thought Content: + preoccupation, + paranoid and + delusions Suicidal Thoughts: denies suicidal thoughts Homicidal Thoughts: denies homicidal thoughts Insight: + limited insight and + fair insight Judgment: + limited judgement and + fair judgement Vital Signs (Past 24 Hours) Last Vital Signs Temp 36.5 C 06/22/25 06:30 Pulse 75 06/22/25 06:31 Resp 16 06/22/25 06:30 BP 116/82 06/22/25 06:31 Pulse Ox 99 06/18/25 06:45 O2 Del Method Room Air 06/18/25 06:45 Results & Data ([facility]) Laboratory Results Laboratory Results - last 24 hr 06/21/25 07:34 [place] 1.0 Current Inpatient Medications Current Inpatient Medications: Current Inpatient Medications Acetaminophen (Acetaminophen 325 Mg Tab) 650 mg PO Q4H PRN PRN Reason: Headache or Minor Fever Stop: 07/13/25 12:46 Al Hydrox/Mg Hydrox/Simethicone (Aluminum/Magnesium Susp 30 Ml Udc) 30 ml PO Q4H PRN PRN Reason: GI Upset Stop: 07/13/25 12:46 Bismuth Subsalicylate (Bismuth Subsalicylate 262 Mg Chew) 2 tab PO Q30M PRN PRN Reason: Loose Stool/Diarrhea Stop: 07/13/25 12:46 Last Admin: 06/21/25 18:52 Dose: 2 tab Clonazepam (Clonazepam 1 Mg Tab) 2 mg PO [facility] Stop: 07/14/25 21:59 Last Admin: 06/21/25 20:59 Dose: 2 mg Haloperidol Lactate (Haloperidol Lactate 5 Mg/Ml 1 Ml Vial) 5 mg IM Q8 PRN PRN Reason: Agitation Stop: 07/13/25 12:53 Last Admin: 06/16/25 15:25 Dose: 5 mg Hydroxyzine HCl (Hydroxyzine Hcl 25 Mg Tab) 25 mg PO Q4H PRN PRN Reason: Anxiety Stop: 07/13/25 12:46 Last Admin: 06/18/25 18:54 Dose: 25 mg Hydroxyzine HCl (Hydroxyzine Hcl 25 Mg Tab) 100 mg PO [facility] Stop: 07/16/25 21:59 Last Admin: 06/21/25 20:58 Dose: 100 mg [place] Carbonate ([place] Carbonate 300 Mg Tab) 900 mg PO HS TOM Stop: 07/15/25 21:59 Last Admin: 06/21/25 20:59 Dose: 900 mg [place] Carbonate ([place] Carbonate 300 Mg Tab) 600 mg PO DAILY TOM Stop: 07/16/25 08:59 Last Admin: 06/22/25 08:12 Dose: 600 mg Lorazepam (Lorazepam 1 Mg Tab) 1 mg PO Q8 PRN PRN Reason: Agitation/restlessness Stop: 07/13/25 14:36 Last Admin: 06/21/25 18:39 Dose: 1 mg Magnesium Hydroxide (Magnesium Hydroxide Susp 30 Ml Udc) 30 ml PO DAILY PRN PRN Reason: Constipation Stop: 07/13/25 12:46 Olanzapine (Olanzapine 5 Mg Tablet) 5 mg PO Q6 PRN PRN Reason: psychosis/agitation Stop: 07/13/25 14:25 Propranolol HCl (Propranolol Hcl La 80 Mg Capcr) 80 mg PO QAM TOM Stop: 07/14/25 09:29 Last Admin: 06/22/25 08:12 Dose: 80 mg Quetiapine Fumarate (Quetiapine Fumarate 300 Mg Tablet) 600 mg PO HS TOM Stop: 07/20/25 21:59 Last Admin: 06/21/25 20:58 Dose: 600 mg Sodium Chloride (Sodium Chloride 0.65% Na Soln 45 Ml ([place])) 1 - 2 sprays NA PRN PRN PRN Reason: Nasal Dryness/Congestion Stop: 07/13/25 12:46 Mental Health & Subst Abuse Tx Therapist [facility] of Therapist: [facility] Post [facility]charge Appointments Primary Care Physician Name Of Family Doctor/PCP: Sonu Odonnell Primary Care Partial or Psych Rehab Name of Partial or Psych Rehab: [facility] Phone Number of Partial or Psych Rehab: [phone]
--- NOTE | 2025-06-23 12:54 | Psychiatric Progress Note ---
Date of Service June 23, 2025 Impression / Recommendations Impression LYN HARDEN is a 39-year-old M has a history of bipolar disorder, and was admitted on 06/13/25 12:08 on a 302 involuntary commitment for becky, psychosis and now on a 303 commitment. On admission: "Concern for Bipolar 1 Becky with psychosis. Presented on admission with pressured speech, decreased need for sleep, high energy, elevated mood and erotomanic and druze delusions about being in a love with a female and trying to help her and being a messenger of god. Intrusive with peers going into their room and following females on the unit inappropriately. Presents poor insight and judgement. Recent triggers include a woman messaging him on facebook for love and recent decrease of lithium from 1200mg to 900mg daily total 2-3 weeks ago by outpatient psychiatrist. Distant past becky suspected with more recent depressive episodes. Appears patient has been partially adherent to meds given subtherapeutic lithium level (0.3) on admission." A: Slept better last night. Li level at 1.0 mmol/L, within target for becky treatment. Refusing further medication adjustments. He is at high risk of decompensation if discharged today. He Nursing report patient made inappropriate comment about the look of another patient. MNPR due to becky, psychosis, recent intrusiveness with peers and staff. Overall, I spent a total of 35 minutes with this case including review of chart records, nursing report, review of lab work, direct evaluation of the patient, counseling the patient., orders, and documentation in the electronic health record. (1) Becky: Continue [place] and Seroquel (2) Insomnia: Sleep hygiene (3) Delusions: (4) Unspecified psychosis not due to a substance or known physiological condition: (5) Bipolar 1 disorder: (6) HTN (hypertension): (7) High triglycerides: Plan 06/23/2025: -Continue medications without changes -monitor involuntary movement/tremor 06/22/25: -Continue [place] without changes -Continue Seroquel without changes -Discontinue Hydroxyzine 06/21/2025: -Discontinue Seroquel 100mg daily with lunch -Discontinue Klonopin 1mg daily, continue Klonopin 2mg HS to encourage ongoing sleep promotion 06/20/2025: -Increase Seroquel to 600mg HS and 100mg daily with lunch -Discontinue Seroquel 300mg qAM 06/19/2025: -Discontinue po olanzapine -Start seroquel 300mg daily or 10mg daily IM if he refuses as medication over objection -Start seroquel 100mg HS 06/18/2025: -Add olanzapine 10mg HS prn for insomnia -Discontinue Seroquel 06/17/2025: -Start olanzapine 10mg po daily OR 10mg daily IM if he refuses as medication over objection 06/16/2025: Start hydroxyzine 100 mg at bedtime Increase [place] to 600mg QAM, 900mg HS [place] trough level on 06/20/25 evening 06/15/2025: Discontinue olanzapine 10 mg at bedtime (pt refusing) Start quetiapine 200 mg at bedtime 06/14/2025: Start [place] 600mg BID D/c Lorazepam Start Clonazepam 1mg QAM, 2mg HS Start Propranolol ER 80mg daily (home med) 06/13/25: The patient was admitted to the [facility] ([facility] health unit) on q15 min checks (behavioral with suicide precautions) for safety. The patient will participate in group, recreational, and milieu therapies and will be offered additional individual and family sessions as clinically appropriate. -Olanzapine 10mg HS -Lorazepam 2mg HS Inventory Assets Strengths: financial stability, family support Needs: insight into condition, medication management Suicide Risk Level Suicide Risk Level: Moderate (q15 min suicide checks) (denies SI but ongoing becky with emotional lability and reports recent intrusive thoughts and concern for depression, but feels able to talk to staff ) Risk Factors Assessment Male: Yes : No Do You Have Access To A Gun?: No Health Problems: No Mental Health Diagnoses: Yes Substance Use Disorders: No Previous Attempt: No Family History of Suicide: No Previous Psychiatric Hospitalization: Yes Hopelessness: No Protective Factors Assessment Quaker Beliefs: Yes : No Responsible for Young Children: No Employed: No Stable Relationships: Yes Supportive Family: Yes Good Rapport with Provider: Yes Absence of Any Risk Factors Above: No Interval History Identifying Information LYN HARDEN is a 39-year-old M has a history of bipolar disorder, and was admitted on 06/13/25 12:08 on a 302 involuntary commitment for becky, psychosis. Now on a 303 commitment. Chief Complaint "You changed my medication. 1500 of [place] is too much. I am shaking . . . I need to go, I don't need medication adjustment, I need to see a neurologist." Review of Systems Sleep Information Total Hours of Sleep: 7.5 Meal Information Percent Meal Consumed - Breakfast: 100 Percent Meal Consumed - Lunch: 100 Percent Meal Consumed - Dinner: 100 Subjective Subjective Patient was seen & assessed and interval progress reviewed with nursing and social work. Patient stated in the group activity room by himself. He appeared upset. Patient initiated the encounter complaining about his medications. Patient accused me of having increased the dose of lithium and complained about tremors caused by the medication. When I explained that the current dose of lithium has been in place since 06/16/25 and the lithium level collected 2 days ago was received yesterday within normal limits patient insisted that his lithium dose at home is 1200. However when I attempted to discuss with him pros and cons of lowering the dose, patient indicated that he does not want any medication changes "because the medication is working for my mood" then proceeded to demand discharge. Patient claims that his discharge plans "keep changing" despite the fact that the original plan of waiting for his parents to come pick him up from [place] has been placed for several days now. Patient became argumentative and irrational. 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 He appears unable to engage in a logical, calm conversation. Of note, patient does not reside in this area and his car was taken by his family after he was admitted. His parents have contacted the patient multiple times including this morning in preparation for his discharge to arrange for a safe travel back to [place]. Physical Exam Mental Examination Eye Contact: Direct Eye Contact Speech: Excessive Mood: Anxious and Irritable Affect: Hostile and Irritable Thought Process: Perseveration Thought Content: Tangential, Perseveration and Obsessional Thoughts Insight: Poor Judgement: Poor Psychiatric Orientation: alert and oriented x 3 Apperance: + disheveled Motor Behavior: + psychomotor agitation (c/o tremor & showed hand tremor but was able to minimize volitionally) Speech: + pressured speech and + loud speech Affect: + labile affect and + irritable affect Mood: + anxious mood and + irritable mood Thought Process: + circumstantial thought process and + tangential thought process Thought Content: + preoccupation Suicidal Thoughts: denies suicidal thoughts Homicidal Thoughts: denies homicidal thoughts Insight: + limited insight Judgment: + poor judgement Vital Signs (Past 24 Hours) Last Vital Signs Temp 36.5 C 06/23/25 06:26 Pulse 101 H 06/23/25 06:27 Resp 16 06/23/25 06:26 BP 129/83 06/23/25 06:27 Pulse Ox 99 06/18/25 06:45 O2 Del Method Room Air 06/23/25 06:26 Results & Data (U) Current Inpatient Medications Current Inpatient Medications: Current Inpatient Medications Acetaminophen (Acetaminophen 325 Mg Tab) 650 mg PO Q4H PRN PRN Reason: Headache or Minor Fever Stop: 07/13/25 12:46 Al Hydrox/Mg Hydrox/Simethicone (Aluminum/Magnesium Susp 30 Ml Udc) 30 ml PO Q4H PRN PRN Reason: GI Upset Stop: 07/13/25 12:46 Bismuth Subsalicylate (Bismuth Subsalicylate 262 Mg Chew) 2 tab PO Q30M PRN PRN Reason: Loose Stool/Diarrhea Stop: 07/13/25 12:46 Last Admin: 06/22/25 14:13 Dose: 2 tab Clonazepam (Clonazepam 1 Mg Tab) 2 mg PO HS TOM Stop: 07/14/25 21:59 Last Admin: 06/22/25 20:46 Dose: 2 mg Haloperidol Lactate (Haloperidol Lactate 5 Mg/Ml 1 Ml Vial) 5 mg IM Q8 PRN PRN Reason: Agitation Stop: 07/13/25 12:53 Last Admin: 06/16/25 15:25 Dose: 5 mg Hydroxyzine HCl (Hydroxyzine Hcl 25 Mg Tab) 25 mg PO Q4H PRN PRN Reason: Anxiety Stop: 07/13/25 12:46 Last Admin: 06/22/25 17:32 Dose: 25 mg [place] Carbonate ([place] Carbonate 300 Mg Tab) 900 mg PO HS TOM Stop: 07/15/25 21:59 Last Admin: 06/22/25 20:47 Dose: 900 mg [place] Carbonate ([place] Carbonate 300 Mg Tab) 600 mg PO DAILY TOM Stop: 07/16/25 08:59 Last Admin: 06/23/25 09:14 Dose: 600 mg Lorazepam (Lorazepam 1 Mg Tab) 1 mg PO Q8 PRN PRN Reason: Agitation/restlessness Stop: 07/13/25 14:36 Last Admin: 06/22/25 16:31 Dose: 1 mg Magnesium Hydroxide (Magnesium Hydroxide Susp 30 Ml Udc) 30 ml PO DAILY PRN PRN Reason: Constipation Stop: 07/13/25 12:46 Olanzapine (Olanzapine 5 Mg Tablet) 5 mg PO Q6 PRN PRN Reason: psychosis/agitation Stop: 07/13/25 14:25 Propranolol HCl (Propranolol Hcl La 80 Mg Capcr) 80 mg PO QAM TOM Stop: 07/14/25 09:29 Last Admin: 06/23/25 09:14 Dose: 80 mg Quetiapine Fumarate (Quetiapine Fumarate 300 Mg Tablet) 600 mg PO HS TOM Stop: 07/20/25 21:59 Last Admin: 06/22/25 20:46 Dose: 600 mg Sodium Chloride (Sodium Chloride 0.65% Na Soln 45 Ml ([place])) 1 - 2 sprays NA PRN PRN PRN Reason: Nasal Dryness/Congestion Stop: 07/13/25 12:46 Mental Health & Subst Abuse Tx Therapist [facility] of Therapist: [facility] Appointments Primary Care Physician Name Of Family Doctor/PCP: Sonu Odonnell Primary Care Partial or Psych Rehab Name of Partial or Psych Rehab: [facility] Phone Number of Partial or Psych Rehab: [phone]
[2025-06-23] MEDS: PROPRANOLOL HCL 20 MG TAB PO SCH (20:13)
--- NOTE | 2025-06-24 09:24 | Psychiatric Progress Note ---
Date of Service June 24, 2025 Impression / Recommendations Impression LYN HARDEN is a 39-year-old M has a history of bipolar disorder, and was admitted on 06/13/25 12:08 on a 302 involuntary commitment for becky, psychosis and now on a 303 commitment. On admission: "Concern for Bipolar 1 Becky with psychosis. Presented on admission with pressured speech, decreased need for sleep, high energy, elevated mood and erotomanic and restoration delusions about being in a love with a female and trying to help her and being a messenger of god. Intrusive with peers going into their room and following females on the unit inappropriately. Presents poor insight and judgement. Recent triggers include a woman messaging him on facebook for love and recent decrease of lithium from 1200mg to 900mg daily total 2-3 weeks ago by outpatient psychiatrist. Distant past becky suspected with more recent depressive episodes. Appears patient has been partially adherent to meds given subtherapeutic lithium level (0.3) on admission." A: Sleep is substantially improved. Becky and irritability lessened. However, appears dysphoric and hopeless this morning. Continued inpatient hospitalization is medically necessary for ongoing monitoring and safety. Overall, I spent a total of 35 minutes with this case including review of chart records, nursing report, review of lab work, direct evaluation of the patient, counseling the patient., orders, and documentation in the electronic health record. (1) Becky: Continue [place] and Seroquel (2) Insomnia: Sleep hygiene (3) Delusions: (4) Unspecified psychosis not due to a substance or known physiological condition: (5) Bipolar 1 disorder: (6) HTN (hypertension): (7) High triglycerides: Plan 06/24/2025: -Continue medication without changes -Continue suicide precautions -Monitor BP 06/23/2025: -Continue medications without changes -monitor involuntary movement/tremor -Propranolol increased to XL60mg + 20mg Q3pm +20 mg QHS 06/22/25: -Continue [place] without changes -Continue Seroquel without changes -Discontinue Hydroxyzine 06/21/2025: -Discontinue Seroquel 100mg daily with lunch -Discontinue Klonopin 1mg daily, continue Klonopin 2mg HS to encourage ongoing sleep promotion 06/20/2025: -Increase Seroquel to 600mg HS and 100mg daily with lunch -Discontinue Seroquel 300mg qAM 06/19/2025: -Discontinue po olanzapine -Start seroquel 300mg daily or 10mg daily IM if he refuses as medication over objection -Start seroquel 100mg HS 06/18/2025: -Add olanzapine 10mg HS prn for insomnia -Discontinue Seroquel 06/17/2025: -Start olanzapine 10mg po daily OR 10mg daily IM if he refuses as medication over objection 06/16/2025: Start hydroxyzine 100 mg at bedtime Increase [place] to 600mg QAM, 900mg HS [place] trough level on 06/20/25 evening 06/15/2025: Discontinue olanzapine 10 mg at bedtime (pt refusing) Start quetiapine 200 mg at bedtime 06/14/2025: Start [place] 600mg BID D/c Lorazepam Start Clonazepam 1mg QAM, 2mg HS Start Propranolol ER 80mg daily (home med) 06/13/25: The patient was admitted to the [facility] ([facility]) on q15 min checks (behavioral with suicide precautions) for safety. The patient will participate in group, recreational, and milieu therapies and will be offered additional individual and family sessions as clinically appropriate. -Olanzapine 10mg HS -Lorazepam 2mg HS Inventory Assets Strengths: financial stability, family support Needs: insight into condition, medication management Suicide Risk Level Suicide Risk Level: Moderate (q15 min suicide checks) (denies SI but ongoing becky with emotional lability and reports recent intrusive thoughts and concern for depression, but feels able to talk to staff ) Risk Factors Assessment Male: Yes : No Do You Have Access To A Gun?: No Health Problems: No Mental Health Diagnoses: Yes Substance Use Disorders: No Previous Attempt: No Family History of Suicide: No Previous Psychiatric Hospitalization: Yes Hopelessness: No Protective Factors Assessment Moravian Beliefs: Yes : No Responsible for Young Children: No Employed: No Stable Relationships: Yes Supportive Family: Yes Good Rapport with Provider: Yes Absence of Any Risk Factors Above: No Interval History Identifying Information LYN HARDEN is a 39-year-old M has a history of bipolar disorder, and was admitted on 06/13/25 12:08 on a 302 involuntary commitment for becky, psychosis. Now on a 303 commitment. Chief Complaint "I am depressed, I am overmedicated, I don't want to go home. I don't want to see my parents, they are just not good people, they never listen to me." Review of Systems Sleep Information Total Hours of Sleep: 7.5 Meal Information Percent Meal Consumed - Breakfast: 100 Percent Meal Consumed - Lunch: 100 Percent Meal Consumed - Dinner: 100 Subjective Subjective Patient was seen & assessed and interval progress reviewed with nursing and social work. Per staff, patient slept 7.5hours, focused on discharge. Patient refused to meet with me in the office. I evaluated him at bedside. He was looking to the outside and rarely made eye contact. Patient made contradicting statements: Told me he is depressed and he doesn't not want to go home, later stated he needs to be discharged and he will rent a car to drive to [place]. He stated he feels over-medicated but refused to discussed potential medication changes. Patient requested a higher dose of propranolol yesterday evening. He was asking to double the dose from 60 XL to 180 XL. He stated that he use to be prescribed 180mg. We discussed concerns about hypotension, bradycardia and other side effects. I recommended to add to separate doses of immediate release 20mg with BP parameters to evaluate his response. He agreed. Today when asked about his experience with the new dose, patient stated "It doesn't matter." On exam, he looks sad today. He is guarded and does not appear to have a solid plan for discharge. Yesterday, patient requested that I call his father to discuss discharge planning. I spoke to his father this morning prior to meeting with the patient and his father stated he is driving to [facility] and will be coming to the hospital on Sunday. Patient was made aware of this conversation and stated "My parents are not good people," which is diametrically different from his description of his parents yesterday. Physical Exam Psychiatric Orientation: alert and oriented x 3 Apperance: appropriately dressed and + disheveled Eye Contact: good eye contact Motor Behavior: + psychomotor agitation (c/o tremor & showed hand tremor but was able to minimize volitionally) Speech: + pressured speech, + loud speech and normal rate/rhythm/volume of speech Affect: + constricted affect Mood: + depressed mood and + dysphoric mood Thought Process: + tangential thought process and + perseveration Thought Content: + preoccupation, + paranoid and + delusions Suicidal Thoughts: denies suicidal thoughts Homicidal Thoughts: denies homicidal thoughts Insight: + limited insight Judgment: + poor judgement Vital Signs (Past 24 Hours) Last Vital Signs Temp 36.4 C L 06/24/25 06:29 Pulse 61 06/24/25 06:29 Resp 18 06/24/25 06:29 BP 128/89 06/24/25 06:29 Pulse Ox 99 06/18/25 06:45 O2 Del Method Room Air 06/23/25 06:26 Results & Data ([facility]) Current Inpatient Medications Current Inpatient Medications: Current Inpatient Medications Acetaminophen (Acetaminophen 325 Mg Tab) 650 mg PO Q4H PRN PRN Reason: Headache or Minor Fever Stop: 07/13/25 12:46 Al Hydrox/Mg Hydrox/Simethicone (Aluminum/Magnesium Susp 30 Ml Udc) 30 ml PO Q4 H PRN PRN Reason: GI Upset Stop: 07/13/25 12:46 Bismuth Subsalicylate (Bismuth Subsalicylate 262 Mg Chew) 2 tab PO Q30M PRN PRN Reason: Loose Stool/Diarrhea Stop: 07/13/25 12:46 Last Admin: 06/22/25 14:13 Dose: 2 tab Clonazepam (Clonazepam 1 Mg Tab) 2 mg PO HS TOM Stop: 07/14/25 21:59 Last Admin: 06/23/25 20:13 Dose: 2 mg Haloperidol Lactate (Haloperidol Lactate 5 Mg/Ml 1 Ml Vial) 5 mg IM Q8 PRN PRN Reason: Agitation Stop: 07/13/25 12:53 Last Admin: 06/16/25 15:25 Dose: 5 mg Hydroxyzine HCl (Hydroxyzine Hcl 25 Mg Tab) 25 mg PO Q4H PRN PRN Reason: Anxiety Stop: 07/13/25 12:46 Last Admin: 06/22/25 17:32 Dose: 25 mg [place] Carbonate ([place] Carbonate 300 Mg Tab) 900 mg PO HS TOM Stop: 07/15/25 21:59 Last Admin: 06/23/25 20:14 Dose: 900 mg [place] Carbonate ([place] Carbonate 300 Mg Tab) 600 mg PO DAILY TOM Stop: 07/16/25 08:59 Last Admin: 06/24/25 08:54 Dose: 600 mg Lorazepam (Lorazepam 1 Mg Tab) 1 mg PO Q8 PRN PRN Reason: Agitation/restlessness Stop: 07/13/25 14:36 Last Admin: 06/22/25 16:31 Dose: 1 mg Magnesium Hydroxide (Magnesium Hydroxide Susp 30 Ml Udc) 30 ml PO DAILY PRN PRN Reason: Constipation Stop: 07/13/25 12:46 Olanzapine (Olanzapine 5 Mg Tablet) 5 mg PO Q6 PRN PRN Reason: psychosis/agitation Stop: 07/13/25 14:25 Propranolol HCl (Propranolol Hcl La 80 Mg Capcr) 80 mg PO QAM TOM Stop: 07/14/25 09:29 Last Admin: 06/24/25 08:57 Dose: 80 mg Propranolol HCl (Propranolol Hcl 20 Mg Tab) 20 mg PO 1400,2100 TOM Stop: 07/23/25 20:59 Last Admin: 06/23/25 20:13 Dose: 20 mg Quetiapine Fumarate (Quetiapine Fumarate 300 Mg Tablet) 600 mg PO HS TOM Stop: 07/20/25 21:59 Last Admin: 06/23/25 20:13 Dose: 600 mg Sodium Chloride (Sodium Chloride 0.65% Na Soln 45 Ml ([place])) 1 - 2 sprays NA PRN PRN PRN Reason: Nasal Dryness/Congestion Stop: 07/13/25 12:46 Mental Health & Subst Abuse Tx Psychiatrist Name of Psychiatrist: [facility] Bharti Marina (In Person Appt) Psychiatrist's Date Of Appointment With Psychiatric Provider: 06/30/25 Time of Appointment with Psychiatrist: 2PM Psychiatric Appointment Comment: [address], [place] [address] Therapist Name of Therapist: [facility] Bharti Fritz (In Person Appt) Therapist's Date of Therapist Appointment: 07/07/25 Time of Therapist Appointment: 5PM Therapy Appointment Comment: [address], [place] [address] Post Discharge Appointments Primary Care Physician Name Of Family Doctor/PCP: Sonu Odonnell Primary Care Partial or Psych Rehab Name of Partial or Psych Rehab: [facility] Phone Number of Partial or Psych Rehab: [phone] Contact Information Discharge Discharge Address: [address] [address]
--- NOTE | 2025-06-25 09:18 | Psychiatric Progress Note ---
Date of Service June 25, 2025 Impression / Recommendations Impression LYN HARDEN is a 39-year-old M has a history of bipolar disorder, and was admitted on 06/13/25 12:08 on a 302 involuntary commitment for becky, psychosis and now on a 303 commitment. On admission: "Concern for Bipolar 1 Becky with psychosis. Presented on admission with pressured speech, decreased need for sleep, high energy, elevated mood and erotomanic and rastafarian delusions about being in a love with a female and trying to help her and being a messenger of god. Intrusive with peers going into their room and following females on the unit inappropriately. Presents poor insight and judgement. Recent triggers include a woman messaging him on facebook for love and recent decrease of lithium from 1200mg to 900mg daily total 2-3 weeks ago by outpatient psychiatrist. Distant past becky suspected with more recent depressive episodes. Appears patient has been partially adherent to meds given subtherapeutic lithium level (0.3) on admission." According to staff patient went to groups, has been calm listening to music. Slept 6.5 hours. Support meeting is scheduled for tomorrow, parents confirm their appointment. A: Sleep is substantially improved. Becky and irritability appear to have resolved. Patient is future oriented. He was able to engage in conversation regarding medication adjustments. His BP continues to be slightly elevated, patient will be able to tolerate a higher dose of XL will order as 80 mg twice daily and discontinue the regular propranolol that was ordered previously. Preparing for discharge tomorrow. Overall, I spent a total of 35 minutes with this case including review of chart records, nursing report, review of lab work, direct evaluation of the patient, counseling the patient., orders, and documentation in the electronic health record. (1) Becky: Continue [place] and Seroquel (2) Insomnia: Sleep hygiene (3) Delusions: Resolved (4) Unspecified psychosis not due to a substance or known physiological condition: (5) Bipolar 1 disorder: (6) HTN (hypertension): (7) High triglycerides: Plan 06/25/2025: - Increase propranolol to XL 80 mg twice daily, monitor BP. - Rest of medications without change 06/24/2025: -Continue medication without changes -Continue suicide precautions -Monitor BP 06/23/2025: -Continue medications without changes -monitor involuntary movement/tremor -Propranolol increased to XL80mg + 20mg Q3pmat +20 mg QHS 06/22/25: -Continue [place] without changes -Continue Seroquel without changes -Discontinue Hydroxyzine 06/21/2025: -Discontinue Seroquel 100mg daily with lunch -Discontinue Klonopin 1mg daily, continue Klonopin 2mg HS to encourage ongoing sleep promotion 06/20/2025: -Increase Seroquel to 600mg HS and 100mg daily with lunch -Discontinue Seroquel 300mg qAM 06/19/2025: -Discontinue po olanzapine -Start seroquel 300mg daily or 10mg daily IM if he refuses as medication over objection -Start seroquel 100mg HS 06/18/2025: -Add olanzapine 10mg HS prn for insomnia -Discontinue Seroquel 06/17/2025: -Start olanzapine 10mg po daily OR 10mg daily IM if he refuses as medication over objection 06/16/2025: Start hydroxyzine 100 mg at bedtime Increase [place] to 600mg QAM, 900mg HS [place] trough level on 06/20/25 evening 06/15/2025: Discontinue olanzapine 10 mg at bedtime (pt refusing) Start quetiapine 200 mg at bedtime 06/14/2025: Start [place] 600mg BID D/c Lorazepam Start Clonazepam 1mg QAM, 2mg HS Start Propranolol ER 80mg daily (home med) 06/13/25: The patient was admitted to the [facility] ([facility] unit) on q15 min checks (behavioral with suicide precautions) for safety. The patient will participate in group, recreational, and milieu therapies and will be offered additional individual and family sessions as clinically appropriate. -Olanzapine 10mg HS -Lorazepam 2mg HS Inventory Assets Strengths: financial stability, family support Needs: insight into condition, medication management Suicide Risk Level Suicide Risk Level: Low (q15 min observation checks) (denies SI but ongoing becky with emotional lability and reports recent intrusive thoughts and concern for depression, but feels able to talk to staff ) Risk Factors Assessment Male: Yes : No Do You Have Access To A Gun?: No Health Problems: No Mental Health Diagnoses: Yes Substance Use Disorders: No Previous Attempt: No Family History of Suicide: No Previous Psychiatric Hospitalization: Yes Hopelessness: No Protective Factors Assessment Religion Beliefs: Yes : No Responsible for Young Children: No Employed: No Stable Relationships: Yes Supportive Family: Yes Good Rapport with Provider: Yes Absence of Any Risk Factors Above: No Interval History Identifying Information LYN HARDEN is a 39-year-old M has a history of bipolar disorder, and was admitted on 06/13/25 12:08 on a 302 involuntary commitment for becky, psychosis. Now on a 303 commitment. Chief Complaint " I am okay" Review of Systems Sleep Information Total Hours of Sleep: 6.5 Meal Information Percent Meal Consumed - Breakfast: 100 Percent Meal Consumed - Lunch: 100 Percent Meal Consumed - Dinner: 100 Subjective Subjective Patient was seen & assessed and interval progress reviewed with nursing and social work. Patient presented calmer today. He was not argumentative. He indicated that he is aware of the discharge plans for tomorrow after family meeting. He denied side effects from medications. Denies suicidal ideation plan or intent. Reported interest in resuming a higher dose of propranolol (XL 180 mg) and stated he is okay with the current dose of lithium and Seroquel. Patient shared that he plans to see his psychiatrist upon return to [place]. Physical Exam Psychiatric Orientation: alert and oriented x 3 Apperance: appropriately dressed Eye Contact: good eye contact Motor Behavior: n tremor Speech: normal rate/rhythm/volume of speech; no pressured speech and no loud speech Affect: + constricted affect; no labile affect and no irritable affect Mood: no depressed mood and no irritable mood Thought Process: goal directed thought process Thought Content: + preoccupation; not paranoid Suicidal Thoughts: denies suicidal thoughts Homicidal Thoughts: denies homicidal thoughts Insight: + fair insight Judgment: + fair judgement Vital Signs (Past 24 Hours) Last Vital Signs Temp 36.5 C 06/25/25 06:25 Pulse 66 06/25/25 06:25 Resp 18 06/25/25 06:25 BP 126/88 06/25/25 06:25 Pulse Ox 99 06/18/25 06:45 O2 Del Method Room Air 06/23/25 06:26 Results & Data ([facility]) Current Inpatient Medications Current Inpatient Medications: Current Inpatient Medications Acetaminophen (Acetaminophen 325 Mg Tab) 650 mg PO Q4H PRN PRN Reason: Headache or Minor Fever Stop: 07/13/25 12:46 Al Hydrox/Mg Hydrox/Simethicone (Aluminum/Magnesium Susp 30 Ml Udc) 30 ml PO Q4H PRN PRN Reason: GI Upset Stop: 07/13/25 12:46 Bismuth Subsalicylate (Bismuth Subsalicylate 262 Mg Chew) 2 tab PO Q30M PRN PRN Reason: Loose Stool/Diarrhea Stop: 07/13/25 12:46 Last Admin: 06/22/25 14:13 Dose: 2 tab Clonazepam (Clonazepam 1 Mg Tab) 2 mg PO HS TOM Stop: 07/14/25 21:59 Last Admin: 06/24/25 20:50 Dose: 2 mg Haloperidol Lactate (Haloperidol Lactate 5 Mg/Ml 1 Ml Vial) 5 mg IM Q8 PRN PRN Reason: Agitation Stop: 07/13/25 12:53 Last Admin: 06/16/25 15:25 Dose: 5 mg Hydroxyzine HCl (Hydroxyzine Hcl 25 Mg Tab) 25 mg PO Q4H PRN PRN Reason: Anxiety Stop: 07/13/25 12:46 Last Admin: 06/22/25 17:32 Dose: 25 mg [place] Carbonate ([place] Carbonate 300 Mg Tab) 900 mg PO HS TOM Stop: 07/15/25 21:59 Last Admin: 06/24/25 20:48 Dose: 900 mg [place] Carbonate ([place] Carbonate 300 Mg Tab) 600 mg PO DAILY TOM Stop: 07/16/25 08:59 Last Admin: 06/25/25 09:10 Dose: 600 mg Lorazepam (Lorazepam 1 Mg Tab) 1 mg PO Q8 PRN PRN Reason: Agitation/restlessness Stop: 07/13/25 14:36 Last Admin: 06/22/25 16:31 Dose: 1 mg Magnesium Hydroxide (Magnesium Hydroxide Susp 30 Ml Udc) 30 ml PO DAILY PRN PRN Reason: Constipation Stop: 07/13/25 12:46 Olanzapine (Olanzapine 5 Mg Tablet) 5 mg PO Q6 PRN PRN Reason: psychosis/agitation Stop: 07/13/25 14:25 Propranolol HCl (Propranolol Hcl La 80 Mg Capcr) 80 mg PO QAM TOM Stop: 07/14/25 09:29 Last Admin: 06/25/25 09:11 Dose: 80 mg Propranolol HCl (Propranolol Hcl 20 Mg Tab) 20 mg PO 1400,2100 TOM Stop: 07/23/25 20:59 Last Admin: 06/24/25 20:47 Dose: 20 mg Quetiapine Fumarate (Quetiapine Fumarate 300 Mg Tablet) 600 mg PO HS TOM Stop: 07/20/25 21:59 Last Admin: 06/24/25 20:48 Dose: 600 mg Sodium Chloride (Sodium Chloride 0.65% Na Soln 45 Ml ([place])) 1 - 2 sprays NA PRN PRN PRN Reason: Nasal Dryness/Congestion Stop: 07/13/25 12:46 Mental Health & Subst Abuse Tx Psychiatrist Name of Psychiatrist: [facility] - Shae Marina (In Person Appt) Psychiatrist's Date Of Appointment With Psychiatric Provider: 06/30/25 Time of Appointment with Psychiatrist: 2PM Psychiatric Appointment Comment: [address], [place] [address] Therapist Name of Therapist: [facility] Bharti Fritz (In Person Appt) Therapist's Date of Therapist Appointment: 07/07/25 Time of Therapist Appointment: 5PM Therapy Appointment Comment: [address], [place] [address] Post Discharge Appointments Primary Care Physician Name Of Family Doctor/PCP: Sonu Odonnell Primary Care Partial or Psych Rehab Name of Partial or Psych Rehab: [facility] Partial Hospitalization Program Phone Number of Partial or Psych Rehab: [phone] Date of Appointment at Partial or Psych Rehab: 07/02/25 Time of Appointment at Partial or Psych Rehab: 10:00AM Partial or Psych Rehab Appointment Comment: [address], [place] [address] Contact Information Discharge Discharge Address: [address] [place] [address]
[2025-06-25] MEDS: PROPRANOLOL HCL LA 80 MG CAPCR PO SCH (20:27)
--- NOTE | 2025-06-26 07:56 | Discharge Summary ---
Date of Service June 26, 2025 History of Present Illness Patient reports being in love and having to help somebody in her first to a woman he has been texting and connecting with. Feels confused and is unsure why he is in the hospital. Says he has been involved with the girl and has lost sleep over her. Reports feeling more emotional and loving everyone. Met this girl on a dating website and driving from [place] to see her. Patient is originally from [facility]. Unsure where she lives. Getting signs to help her because her daughter needs help. Reports past autism and ADHD diagnosis. Reports taking medications: [place] 300 mg 3 times daily, propranolol 80 mg daily, Latuda 20 mg with dinner, Lexapro 10 mg daily. Has a psychiatrist. Past inpatient psychiatric hospitalization 2 years ago for depression and anxiety. Reports past becky many years ago when his daughter was a and he had started steroids and had stress from school. Reports in the past few weeks lithium was decreased from 1200 to 900 mg daily total. Patient does not want antipsychotic however is willing to accept a benzodiazepine. Denies current SI and HI. Patient reassured. 06/13/25 13:40 - Psychiatric Liason Note by Angela Chawla RN Pt admitted to [address] [place] [address] at 1205 on 302 involuntary commitment. Pt presented after he drove here from [place] trying to find a female online because [email or web address] He has been calm and cooperative since he has arrived on the unit. He remains delusional as he still states he is hearing "inner dialogue telling him to help someone." He also questioned staff who a female peer is on the unit believing this may be the female he is supposed to help. He is refusing to sign NAKITA's for any of his outpatient providers. He initially was resistant to sign an NAKITA for his parents but he did eventually agree. He stated he sees Shae Marina through [facility] in [place] for psych med management. He also sees Saumya through same facility for therapy. He also claims she has another therapist there as well through the [facility]" but was not able to elaborate what this is. He denies substance us. His last psych hospitalization was approximately 2 years ago in [place] but he states he has been hospitalized at least 15-20 times. He lacks insight into hospitalization as he feels he does not need to be here and he is only here to help someone else. He made homicidal statements in ED but none voiced on the unit. He showered upon arrival. Initiated on suicide/homicide precautions as well as elopement and MNPR. 06/13/25 03:10 - Nurse Note by Yury Hernandez RN Patient started to become increasingly irritable and restless throughout the night, continuously coming out of room and becoming increasingly more difficult to redirect. Pt came out of [facility] room multiple times and made numerous statements about a female staff member, including "that's her, I need to talk to her" and "It's a sign, I know what i need to do". Pt was instructed to return into his room, but instead attempted to follow the female staff out of the unit. Security then presented to [facility] and redirected patient back to room. Pt again came out of room and stated "I was told to murder all of you without touching you, and I just have to do what I'm told" with this RN, Willy GODINEZ and security staff members Guanakito Beard and Leo present. Patient was again redirected into room and an order was placed for 10mg PO Zyprexa and 1mg PO Ativan. This RN attempted to administer medications to pt, but refused them. An order was then placed for 2mg of IV Ativan by Dr. Masterson. Security present in room while this RN then attempted to administer the IV medication, and patient escalated and attempted to fight with staff. Pt physically held by security and taken to the ground, where the IV Ativan was administered. Dr. Masterson and charge nurse made aware of incident. After administration, patient de-escalated and was able to be redirected back to bed. Pt denied any pain or injury from the incident, and full body assessment was done by this RN and no external injuries noted. Pt did not strike head while being taken to the ground. 06/12/25 21:55 - Case Management ED Psych by Tori Petty Met with Leonardo javier to complete mental health evaluation. Patient denies any mental health conditions. When asked about psychiatric medications he is prescribed, he stated "lithium is for a little bit of anxiety and Lexapro is for the same." Patient then stated he is diagnosed with Autism and ADHD. Leonardo stated he travelled to [place] to see a person he was talking to online, Fatmata Marvin. He stated he knows Fatmata's address and she is "elusive in a way about me coming." He stated he "[facility]." Patient repeatedly out of the room stating he needs to find Fatmata. He then stated he is hearing voices to help the patient (minor female) in the next room. He stated he has had this happen to him before "but not like this, I know this is real and I have to follow his orders." He denies SI/HI/SIB. He stated "I just feel love." Patient denies visual hallucination but stated "I am noticing more and more in tune to see the messages." He reports hearing the voice of the [employer] telling him to do things. He denies that voices are telling him to harm himself or others. Leonardo stated he is prescribed medication by a psychiatrist but does not remember name/agency in [place]. He stated he also sees a therapist but can't remember name. He stated he has been inpatient in [place], [place]. He talked about feeling "positive/negative energy." He denies legal issues. He did not want to talk about trauma or abuse history. He stated parents followed him from [place] "to stop me from doing it." Leonardo stated he will sign himself into mental health treatment "because the [facility] led me here for a reason so it must be my purpose." Leonardo is not able to meaningfully consent to inpatient treatment at this time due to delusion based thinking that is not reality based in his thinking. 302 petition completed and delegate contacted. 06/12/25 20:54 - Nurse Note by Jil Renteria RN Patient repeatedly asking staff if they know a "Fatmata Marvin." States that he came to [place] looking for her. Out of room frequently with various requests--RN provided blanket, water, crackers and peanut butter. Patient restless but overall cooperative, generally redirectable. 06/12/25 20:24 - Case Management ED Psych by Tori Petty Accompanied Dr. Infante to meet with Leonardo and his mother. Leonardo stated "Im just the messenger for the [employer]." Mother stated "he is Bipolar and hasn't slept in four days." Leonardo stated "no I'm not. Mom, you need to stop." Patient stated he does see a psychiatrist and is prescribed medications. Leonardo presents extremely guarded. Spoke with mother outside room. Mother stated "he's very mentally ill." Mother stated he is hearing voices. Mother denies any SI. Mother denies any aggression or HI. Process of medical clearance and mental health evaluation explained to mother and patient. Physical Exam Psychiatric Orientation: alert and oriented x 3 Apperance: appropriately dressed and + disheveled Eye Contact: good eye contact Motor Behavior: steady gait and station, no abnormal motor movements and + psychomotor agitation; n tremor Speech: normal rate/rhythm/volume of speech; no pressured speech and no loud speech Affect: + constricted affect; no irritable affect Mood: no depressed mood, no anxious mood and no irritable mood Thought Process: goal directed thought process Thought Content: not paranoid Suicidal Thoughts: denies suicidal thoughts Homicidal Thoughts: denies homicidal thoughts Insight: good insight Judgment: good judgement Vital Signs (Past 24 Hours) Last Vital Signs Temp 36.4 C L 06/26/25 07:34 Pulse 70 06/26/25 07:34 Resp 18 06/26/25 07:34 BP 113/79 06/26/25 07:34 Pulse Ox 99 06/26/25 07:34 O2 Del Method Room Air 06/23/25 06:26 Principal Diagnosis Bipolar disorder, most recent episode manic with psychosis. Psychiatric Data See daily stay summary. In short, safety was maintained and the patient was cooperative with care. Medication changes included adding Seroquel, increasing lithium, increasing propranolol and they tolerated this well. A family session was held on 06/26/2025 and safety plan was completed prior to discharge. I met with patient's parents with him present in the room and confirmed that patient will be able to collect her medications from a local pharmacy before they drive to [place]. Day of Discharge Assessment Today the patient voices readiness for discharge. They note improvement in mood and deny thoughts to harm self or others. Thoughts remain organized and they are improved from admission. There is no evidence of psychosis. They agree to take mediations as prescribed and keep follow-up appointments. They are stable for discharge to outpatient level of care. Transition of Care Transition Of Care Record: was reviewed with the patient Advance Directives Advance Directives Information Provided: Yes Advance Directives: No Mental Health Advance Directive: No Advance Directives on File: No Living Will: No Power of Seismograph Chief: No Advance Directives Reason:: Declines as Mental Health Visit. Suicide Risk Level Suicide Risk Level: Low (q15 min observation checks) Risk Factors Assessment Male: Yes : No Do You Have Access To A Gun?: No Health Problems: No Mental Health Diagnoses: Yes Substance Use Disorders: No Previous Attempt: No Family History of Suicide: No Previous Psychiatric Hospitalization: Yes Hopelessness: No Protective Factors Assessment Latter-Day Beliefs: Yes : No Responsible for Young Children: No Employed: No Stable Relationships: Yes Supportive Family: Yes Good Rapport with Provider: Yes Absence of Any Risk Factors Above: No Tobacco Cessation at Discharge Tobacco Cessation Medication Prescribed at Discharge: Offered & Pt Refused Total Time Total Time Spent: Greater Than 30 Minutes Discharge Data Lab Results 06/12/25 06/12/25 06/12/25 20:44 20:55 Unknown WBC 11.26 H RBC 4.94 Hgb 15.4 Hct 44.2 MCV 89.5 MCH 31.2 MCHC 34.8 RDW Std Deviation 43.1 RDW Coeff of Carlene 13.2 Plt Count 336 MPV 9.4 Neutrophils % (Manual) 34 Lymphocytes % (Manual) 27 Reactive Lymphs % (Man) 29 Monocytes % (Manual) 8 Eosinophils % (Manual) 1 Basophils % (Manual) 1 Neutrophils # (Manual) 3.83 Total Absolute Neuts 3.83 Lymphocytes # (Manual) 3.04 Reactive Lymphs # 3.27 Total Abs Lymphocytes 6.31 H Monocytes # (Manual) 0.90 H Eosinophils # (Manual) 0.11 Basophils # (Manual) 0.11 RBC Morphology Unremarkable Sodium 137 Potassium 3.7 Chloride 101 Carbon Dioxide 29 Anion Gap 7 BUN 15 Creatinine 0.96 Est Cr Clr Drug Dosing 130.3 eGFR 103.11 BUN/Creatinine Ratio 15.6 Glucose 123 H Estimat Average Glucose Hemoglobin A1c Calcium 9.7 Total Bilirubin 0.7 AST 31 ALT 31 Alkaline Phosphatase 65 Total Creatine Kinase 218 Total Protein 8.4 H Albumin 4.6 Globulin 3.8 Albumin/Globulin Ratio 1.2 Triglycerides Cholesterol LDL Cholesterol, Calc VLDL Cholesterol, Calc HDL Cholesterol Cholesterol/HDL Ratio TSH 0.918 Urine Color Dark Yellow Urine Appearance Clear Urine pH 6.0 Ur Specific Platinum 1.014 Urine Protein Negative Urine Glucose (UA) Negative Urine Ketones Negative Urine Blood 1+ H Urine Nitrite Negative Urine Bilirubin Negative Urine Urobilinogen Negative Ur Leukocyte Esterase Negative Urine WBC (Auto) 0-5 Urine RBC (Auto) 6-10 H U Hyaline Cast (Auto) 0-2 U Epithel Cells (Auto) 0-2 Urine Bacteria (Auto) None Seen Urine Comment Salicylates < 3.0 L Urine Opiates Screen Neg Ur Methadone, Qual Neg Urine Fentanyl Screen Neg Acetaminophen < 3 L Urine Barbiturates Neg Ur Phencyclidine (PCP) Neg U Amphetamin/Meth Scrn Neg MDMA (Ecstasy) Screen Neg U Benzodiazepines Scrn Neg [place] 0.3 L Ur Cocaine Metabolite Neg U Marijuana (THC) Screen Neg Ethyl Alcohol mg/dL < 10.0 SARS-CoV-2, RNA, NAAT NEGATIVE 06/21/25 07:34 WBC RBC Hgb Hct MCV MCH MCHC RDW Std Deviation RDW Coeff of Carlene Plt Count MPV Neutrophils % (Manual) Lymphocytes % (Manual) Reactive Lymphs % (Man) Monocytes % (Manual) Eosinophils % (Manual) Basophils % (Manual) Neutrophils # (Manual) Total Absolute Neuts Lymphocytes # (Manual) Reactive Lymphs # Total Abs Lymphocytes Monocytes # (Manual) Eosinophils # (Manual) Basophils # (Manual) RBC Morphology Sodium Potassium Chloride Carbon Dioxide Anion Gap BUN Creatinine Est Cr Clr Drug Dosing eGFR BUN/Creatinine Ratio Glucose Estimat Average Glucose 108 Hemoglobin A1c 5.4 Calcium Total Bilirubin AST ALT Alkaline Phosphatase Total Creatine Kinase Total Protein Albumin Globulin Albumin/Globulin Ratio Triglycerides 373 H Cholesterol 170 LDL Cholesterol, Calc 71 VLDL Cholesterol, Calc 75 H HDL Cholesterol 24 Cholesterol/HDL Ratio 7.1 H TSH Urine Color Urine Appearance Urine pH Ur Specific Platinum Urine Protein Urine Glucose (UA) Urine Ketones Urine Blood Urine Nitrite Urine Bilirubin Urine Urobilinogen Ur Leukocyte Esterase Urine WBC (Auto) Urine RBC (Auto) U Hyaline Cast (Auto) U Epithel Cells (Auto) Urine Bacteria (Auto) Urine Comment Salicylates Urine Opiates Screen Ur Methadone, Qual Urine Fentanyl Screen Acetaminophen Urine Barbiturates Ur Phencyclidine (PCP) U Amphetamin/Meth Scrn MDMA (Ecstasy) Screen U Benzodiazepines Scrn [place] 1.0 Ur Cocaine Metabolite U Marijuana (THC) Screen Ethyl Alcohol mg/dL SARS-CoV-2, RNA, NAAT Hospital Course (1) Becky: Improved (2) Insomnia: Improved (3) Delusions: Resolved (4) Unspecified psychosis not due to a substance or known physiological condition: (5) Bipolar 1 disorder: (6) HTN (hypertension): Well-controlled (7) High triglycerides: Plan 06/26/2025: Ready for discharge 06/25/2025: - Increase propranolol to XL 80 mg twice daily, monitor BP. - Rest of medications without change. 06/24/2025: -Continue medication without changes -Continue suicide precautions -Monitor BP 06/23/2025: -Continue medications without changes -monitor involuntary movement/tremor -Propranolol increased to XL80mg + 20mg Q3pmat +20 mg QHS 06/22/25: -Continue [place] without changes -Continue Seroquel without changes -Discontinue Hydroxyzine 06/21/2025: -Discontinue Seroquel 100mg daily with lunch -Discontinue Klonopin 1mg daily, continue Klonopin 2mg HS to encourage ongoing sleep promotion 06/20/2025: -Increase Seroquel to 600mg HS and 100mg daily with lunch -Discontinue Seroquel 300mg qAM 06/19/2025: -Discontinue po olanzapine -Start seroquel 300mg daily or 10mg daily IM if he refuses as medication over objection -Start seroquel 100mg HS 06/18/2025: -Add olanzapine 10mg HS prn for insomnia -Discontinue Seroquel 06/17/2025: -Start olanzapine 10mg po daily OR 10mg daily IM if he refuses as medication over objection 06/16/2025: Start hydroxyzine 100 mg at bedtime Increase [place] to 600mg QAM, 900mg HS [place] trough level on 06/20/25 evening 06/15/2025: Discontinue olanzapine 10 mg at bedtime (pt refusing) Start quetiapine 200 mg at bedtime 06/14/2025: Start [place] 600mg BID D/c Lorazepam Start Clonazepam 1mg QAM, 2mg HS Start Propranolol ER 80mg daily (home med) 06/13/25: The patient was admitted to the [facility] ([facility] mental health unit) on q15 min checks (behavioral with suicide precautions) for safety. The patient will participate in group, recreational, and milieu therapies and will be offered additional individual and family sessions as clinically appropriate. -Olanzapine 10mg HS -Lorazepam 2mg HS Mental Health & Subst Abuse Tx Psychiatrist Name of Psychiatrist: [facility] - Shae Marina (In Person Appt) Psychiatrist's Date Of Appointment With Psychiatric Provider: 06/30/25 Time of Appointment with Psychiatrist: 2PM Psychiatric Appointment Comment: [id number], [place] [address] Psychiatrist Release of Information: Obtained, Reviewed and Signed Therapist Name of Therapist: [facility] - Saumya Fritz (In Person Appt) Therapist's Date of Therapist Appointment: 07/07/25 Time of Therapist Appointment: 5PM Therapy Appointment Comment: [id number], [place] [address] Therapist Release of Information: Obtained, Reviewed and Signed Post Discharge Appointments Primary Care Physician Name Of Family Doctor/PCP: Sonu Odonnell Primary Care Primary Care Release of Information: Obtained, Reviewed and Signed Partial or Psych Rehab Name of Partial or Psych Rehab: [facility] Partial Hospitalization Program Phone Number of Partial or Psych Rehab: [phone] Date of Appointment at Partial or Psych Rehab: 07/02/25 Time of Appointment at Partial or Psych Rehab: 10:00AM Partial or Psych Rehab Appointment Comment: [address] [place] [address] Release of Information for Partial or Psych Rehab: Obtained, Reviewed and Signed Home Health Services Home Health Services:: None Smoking Cessation Counseling Tobacco Cessation Medication Prescribed at Discharge: Offered & Pt Refused Contact Information Discharge Discharge Address: [address] [place], [place] [id number] Discharge Plan Discharge Items Patient Disposition: Home - Self-Care Reason For Visit: UNSPECIFIED PSYCHOSIS Discharge Diagnosis: Bipolar DO MRE manic with pscyhotic features Condition on Discharge: Fair Activity: Resume your previous activity Non-emergency contact: Primary Care Provider and Psychiatrist Call non-emergency contact if: you have any medication questions and your symptoms worsen Follow-up/Referrals: PCP,NO [Primary Care Provider] - Diet: Low Fat Addtl Attending Provider Instructions: SPECIAL CARE INSTRUCTIONS: 1. Follow through with your scheduled aftercare appointments. If unable to keep an appointment, please call to reschedule. 2. Take your medication only as prescribed. Medication should not be changed or stopped without the approval of your doctor. In the event of worsening symptoms or concerns about side effects, contact your doctor immediately. 3. Utilize new healthy coping skills, anger management skills, and stress management skills learned during your hospitalization. Journal feelings and process them with a support person. Identify stressors or situations that may result in relapse, deterioration or inappropriate behaviors and develop a plan to deal with those issues. 4. If your coping skills are ineffective and you are in crisis, contact your outpatient providers for direction. If unable to reach your providers, please call the [facility] CRISIS LINE AT , go to the [facility] walk-in center at [address], [address], [place], or go to the closest Emergency Room. 5. Avoid alcohol and un-prescribed drugs. 6. You have been provided with the Mental Health Advance Directives Pamphlet for your review. 7. Your condition is stable for discharge to outpatient level of care, but recovery is an ongoing process. Ifthoughts to harm yourself or others return, follow the safety plan developed during your stay. Planning for a safe return home includes securing weapons. Our treatment team recommends weaponsbe removed from the home until your outpatient provider reassesses your progress. In rare cases where the items themselvescannot be removed, guns and ammunitionshould be secured separatelyand keys stored by a reliable personoutside of the home. If you were admitted on an involuntary commitment, the police or other legal authorities may be involved in this process. AFTERCARE APPOINTMENTS: * Please call your insurance company prior to your scheduled appointment to confirm your aftercare providers are covered. Take your insurance information to your appointments. WHO TO CALL AND WHEN: Medical Emergencies: For questions or emergencies related to your hospital stay, please contact the Inpatient Behavioral Health Unit at [phone]. A production laborer is on-call 04/06 for the Behavioral Health Unit for emergencies At any time you feel your situation is an emergency, you may also call 911 immediately. Pending Studies at Discharge: No Stand-Alone Forms: [employer], Smoking Cessation Medications and DC Order Prescriptions: New quetiapine 300 mg Tablet 600 mg PO HS Qty: 30 0RF lithium carbonate 300 mg Tablet 900 mg PO HS Qty: 30 0RF lithium carbonate 300 mg Tablet 600 mg PO DAILY Qty: 30 0RF propranolol 80 mg Capsule,Extended Release 24hr 80 mg PO BID Qty: 30 0RF Discontinued hydroxyzine pamoate [Vistaril] 25 mg Capsule 25 mg PO QPM propranolol 80 mg Capsule,Extended Release 24hr 80 mg PO DAILY escitalopram oxalate [Lexapro] 10 mg Tablet 10 mg PO DAILY lithium carbonate 300 mg Tablet 300 mg PO TID Latuda tablet 20 mg PO QPM Discharge Orders: Discharge Order (Routine); Ordered 06/26/25 Ordered By: Dede Schrader/Other Patient Handouts: High Blood Pressure Risk Factors, Treating Insomnia, Understanding Bipolar Disorder, Treating Bipolar Disorder, Prevention Men 50 To 64 Admission Data Admit Date/Time: 06/13/25 12:08 Attending Provider: Lynda Smith Admit Provider: Hang Quiroz Primary Care Provider: PCP,NO Other Interventions: Discharge Summary Assessment (RN) Last Done: 06/26/25 07:34 PSY Interdisciplinary Discharge Planning Last Done: 06/26/25 07:31 [place] [address] D/C day mgmt > 30 min Patient Type Established History Expanded Problem Focused Medical Decision Making Moderate Complexity Diagnoses Becky F30.9 Insomnia G47.00 Delusions F22 Unspecified psychosis not due to a substance or known physiological condition F29 Bipolar 1 disorder F31.9 HTN (hypertension) I10 High triglycerides E78.1 Time Spent (min) 35
[2025-06-26] MEDS ORDERED: DESTROY THIS MEDICATION ONE (08:23)
== END 2025-06-26 09:42 | disposition home or self-care (01) | DRG 885 ==
LOC: ED 20:09 → SUATTDRO 06-13 12:08 → 3S 06-13 12:08